=== PATIENT | male | born 1970 | race Caucasian/White ===

== ENCOUNTER → 2020-01-28 10:00 | Outpatient (BNVA) | payer OTHER, SELFPAY | PROVIDERS: PCP Internal Medicine; Referring Provider Internal Medicine; Visit Provider Surgery | DX: Z76.89 Persons encountering health services in other specified circumstances (principal) ==

== ENCOUNTER → 2020-06-02 10:28 | Outpatient (BNVA) | payer OTHER, SELFPAY | PROVIDERS: PCP Internal Medicine; Visit Provider Surgery ==

== ENCOUNTER → 2020-11-03 11:51 | Outpatient (BNVA) | payer OTHER, SELFPAY | PROVIDERS: PCP Internal Medicine; Visit Provider Surgery ==

== ENCOUNTER 2020-11-23 09:09 | Outpatient (RCR) | payer OTHER, SELFPAY | END 2020-12-23 12:31 | disposition home or self-care (01) | LOC: HO.WCC 09:09 | PROVIDERS: Visit Provider Surgery | DX: S31.819D Unspecified open wound of right buttock, subsequent encounter (principal); S31.000D Unspecified open wound of lower back and pelvis without penetration into retroperitoneum, subsequent encounter; Z87.891 Personal history of nicotine dependence; Z86.19 Personal history of other infectious and parasitic diseases; Z79.899 Other long term (current) drug therapy; Z87.19 Personal history of other diseases of the digestive system | CPT/HCPCS: 99214 ==

== ENCOUNTER 2023-04-04 12:58 | Outpatient (AMB) | payer OTHER, SELFPAY ==
--- NOTE | 2023-04-04 13:00 | MHC.PC.OV ---
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 Required: No Accompanied by: Self / Same As Patient Allergies amoxicillin [Augmentin] Allergy (Unknown, Verified 04/04/23 13:02) rash Medication List - Last Reconciled 04/04/23 by Minda Segura MD acetaminophen (Tylenol) 325 mg PO QID PRN blood pressure monitor (Blood Pressure Kit) As directed buspirone 15 mg PO BID duloxetine (Cymbalta) 60 mg PO BID risperidone 2 mg PO BID venlafaxine ER 75 mg PO DAILY zolpidem (Ambien) 10 mg PO BEDTIME Tobacco use date assessed: 04/04/23 Dental Screening Dental Screen Date: 04/04/23 Did you have a dental visit in the last 12 months?: No Did you have a dental problem in the last 6 months where you did not have access to dental care?: No Was dental information given to patient?: No HPI New patient-requesting physical HPI Details 53-year-old male with multiple medical problems patient has recurrent major depression history of polysubstance abuse GERD hepatitis-C iron deficiency anemia and has had multiple groin surgeries for hidradenitis suppurativa coming in for 1st time. Patient if for ff up hepatitis C. incarcerated 2020 2 years follow up today. RUQ pain 2 month, no n no v occ dizzy, no fevers, , no diarrhea, have cough, , no urinary sx. , no sore throat, PFSH Medical History (Updated 04/04/23 @ 14:08 by Minda Segura MD) Depression Anxiety GERD (gastroesophageal reflux disease) Hidradenitis suppurativa ETOH abuse Hepatitis C Surgical History (Updated 04/04/23 @ 14:08 by Minda Segura MD) Aftercare following left hip joint replacement surgery History of incision and drainage History of hernia repair Social History (Updated 04/04/23 @ 13:54 by Minda Segura MD) Housing: House Patient Tobacco Use Status: Current everyday Tobacco user Tobacco use type: Cigarette Years Smoked: 1/2 pack a day since 16 years old decline referral to Lung cancer screening e-Cigarette/Vaping Use: Never Used service: No Current occupational status: unemployed and disabled Cognitive needs: No Hearing needs: No Vision needs: No Questionnaire PHQ-9 Over the last 2 weeks, how often have you been bothered by any of the following problems? 1. Little interest or pleasure in doing things: several days 2. Feeling down, depressed, or hopeless: more than half the days 3. Trouble falling or staying asleep, or sleeping too much: nearly every day 4. Feeling tired or having little energy: more than half the days 5. Poor appetite or overeating: several days 6. Feeling bad about yourself - or that you are a failure or have let yourself or your family down: several days 7. Trouble concentrating on things, such as reading the newspaper or watching television: several days 8. Moving or speaking so slowly that other people could have noticed. Or the opposite - being so fidgety or restless that you have been moving around a lot more than usual: several days 9. Thoughts that you would be better off or of hurting yourself in some way: not at all Total score: 12 49078 - PHQ-9 Billing: Yes Source: Developed by Drs. Dorian Ortiz, Zoey Stephens, Shaji Yancey and colleagues, with an educational dacia from [employer]. Thrive Questionnaire Date Thrive assessed: 04/04/23 I am a: Patient What is your living situation today?: I have a steady place to live Within the past 12 months, did the food you bought not last and you didn't have the money to get more?: Never true Within the past 12 months, did you worry whether your food would run out before you got money to buy more?: Never true Do you have trouble paying for medicines?: No Do you have trouble getting transportation to medical appointments?: No Do you have trouble paying your heating and electricity bill?: No Do you have trouble taking care of your child, family member or friend?: No Do you have trouble with day-to-day activities such as bathing, preparing meals, shopping, managing finances, etc.?: No Are you currently unemployed and looking for a job?: No Are you interested in more education?: No Please select the resources that you would like help with: None Currently or been in a relationship where the following occur: no concerns reported AUDIT C Alcohol Use Questionnaire (AUDIT-C) 1. How often do you have a drink containing alcohol?: Never 3. How often do you have six or more drinks on one occasion?: Never Total Score: 0 RUBEN-7 AMB Questionnaire RUBEN-7 Date RUBEN - 7 assessed: 04/04/23 Feeling nervous, anxious, or on edge: 2 = More than half the days Not being able to stop or control worryin = Several days Worrying too much about different things: 1 = Several days Trouble relaxin = More than half the days Being so restless that it is hard to sit still: 1 = Several days Becoming easily annoyed or irritable: 1 = Several days Feeling afraid as if something awful might happen: 0 = Not at all Total RUBEN-7 score (0-4 normal; 5-9 mild; 10-14 moderate; 15-21 severe): 8 Source: Developed by Drs. Dorian Ortiz, Zoey Stephens, Shaji Yancey and colleagues, with an educational dacia from [employer]. RUBEN-7 Assessment Billing RUBEN-7 Assessment Tool: RUBEN-7 Assessment 54728 Review of Systems Const Denies poor appetite and Denies weakness Eyes Denies no additional complaints ENT Reports Normal hearing present, Denies dizziness, Denies nasal congestion, Denies tinnitus and Denies sore throat Card Denies chest pain, Denies syncope, Denies rapid heart rate and Denies dyspnea Resp Denies cough and Denies dyspnea GI Denies change in stool character, Reports constipation, Denies diarrhea, Denies nausea and Denies vomiting Denies dysuria and Denies urinary frequency Neuro Reports Normal hearing present, Denies confusion, Denies dizziness, Denies syncope and Denies weakness Psych Denies confusion Physical exam (Primary Care) Vital Signs: Last Vital Signs Pulse 98 04/04/23 13:01 BP 142/96 H 04/04/23 13:01 Pulse Ox 99 04/04/23 13:01 Oxygen Delivery Method Room Air 04/04/23 13:01 BMI result Body Mass Index 20.3 Tobacco/Smoking Status: Tobacco use Status Tobacco use date assessed 04/04/23 04/04/23 13:34 Patient Tobacco Use Status Current everyday Tobacco 04/04/23 13:54 Tobacco use type Cigarette 04/04/23 13:54 e-Cigarette/Vaping Use Never Used 04/04/23 13:54 PHQ-9: PHQ-9 Score PHQ-9: Total score 04/04/23 18:57 Thrive Assessment: Date of Thrive Assessment Date Thrive assessed 04/04/23 04/04/23 13:34 Currently or been in a relationship where the following occur: no concerns reported Const General: No confusion Orientation/consciousness: No confusion HENMT Head: Yes normocephalic Ears: external ears normal and TM's normal bilaterally Face and sinus: Yes normal facial exam Mouth: moist mucous membranes Throat: Yes tonsils normal Eyes Conjunctivae: conjunctivae normal Pupils: Equal, round and reactive pupils present and Pupil accommodation reflex normal Direct Ophthalmoscopy: normal light reflex Neck Neck: No lymphadenopathy Thyroid: Thyroid normal Chest Chest palpation & inspection: normal inspection of the chest Resp Effort & Inspection: normal respiratory effort and no audible wheezes Auscultation: clear to auscultation bilaterally, no crackles, no wheezes and lung sounds not diminished Cardio Rate: regular rate Rhythm: regular rhythm Peripheral pulses: radial pulses present and dorsalis pedis present GI Other: RUQ tenderness no guarding, no rebound, mild R flank pain Palpation (GI): no masses Auscultation: normal bowel sounds and normoactive bowel sounds Rectal Exam - Male: Yes deferred Skin General skin exam: no rashes or lesions noted Rashes: no rashes Neuro General: No confusion Cranial nerves: Yes Equal, round and reactive pupils present and Yes Normal hearing present Cognition (Neuro): normal cognition Gait exam (Neuro): Normal gait present Motor exam (neuro): 5/5 motor strength present throughout Deep tendon reflexes (DTR's): Right brachioradialis reflex intensity grade: 2+, Left brachioradialis reflex intensity grade: 2+, Right patellar reflex intensity grade: 2+ and Left patellar reflex intensity grade: 2+ Extrem General: No edema Assessment and Plan Assessment & Plan (1) Polysubstance abuse: Code(s): F19.10 - Other psychoactive substance abuse, uncomplicated (2) Recurrent major depression: Comment: Dr. Jeter Psychiatry Code(s): F33.9 - Major depressive disorder, recurrent, unspecified (3) Iron deficiency anemia: Code(s): D50.9 - Iron deficiency anemia, unspecified (4) GERD (gastroesophageal reflux disease): Code(s): K21.9 - Gastro-esophageal reflux disease without esophagitis (5) Hepatitis C: Code(s): B19.20 - Unspecified viral hepatitis C without hepatic coma (6) Blood pressure elevated without history of HTN: Code(s): R03.0 - Elevated blood-pressure reading, without diagnosis of hypertension (7) RUQ abdominal pain: Code(s): R10.11 - Right upper quadrant pain (8) Colon cancer screening: Code(s): Z12.11 - Encounter for screening for malignant neoplasm of colon (9) Renal calculus, right: Comment: 2019 Code(s): N20.0 - Calculus of kidney (10) Left hip pain: Code(s): M25.552 - Pain in left hip Orders: Orders Hepatitis C Antibody Today B19.20 - Unspecified viral hepatitis C without hepatic coma Hepatitis C Antibody Reflex Today B19.20 - Unspecified viral hepatitis C without hepatic coma Hepatitis C Viral Load Today B19.20 - Unspecified viral hepatitis C without hepatic coma Hepatitis A,B,C Profile Today B19.20 - Unspecified viral hepatitis C without hepatic coma Complete Blood Count Auto Diff Today B19.20 - Unspecified viral hepatitis C without hepatic coma Comprehensive Met. Panel Today B19.20 - Unspecified viral hepatitis C without hepatic coma Thyroid Stimulating Hormone Today B19.20 - Unspecified viral hepatitis C without hepatic coma Vitamin B12 and Folate Today B19.20 - Unspecified viral hepatitis C without hepatic coma US abdomen complete Today R10.11 - Right upper quadrant pain, R79.89 - Other specified abnormal findings of blood chemistry XR hip LT w PEL1V Today M25.552 - Pain in left hip Hepatitis C Genotype Today B19.20 - Unspecified viral hepatitis C without hepatic coma Free T4 (Free Thyroxine) Today B19.20 - Unspecified viral hepatitis C without hepatic coma Lipid Panel Today B19.20 - Unspecified viral hepatitis C without hepatic coma, E78.00 - Pure hypercholesterolemia, unspecified Ferritin Today D50.9 - Iron deficiency anemia, unspecified IRON PROFILE Today D50.9 - Iron deficiency anemia, unspecified Reticulocyte Count Today D50.9 - Iron deficiency anemia, unspecified UA w Microscopic Today D50.9 - Iron deficiency anemia, unspecified Prostate Specific Antigen Scr Today D50.9 - Iron deficiency anemia, unspecified Referrals Gastroenterology Referral B19.20 - Unspecified viral hepatitis C without hepatic coma, Z12.11 - Encounter for screening for malignant neoplasm of colon Medications: New blood pressure monitor (Blood Pressure Kit) As directed 1 ea 0RF I10 - Essential (primary) hypertension, R03.0 - Elevated blood-pressure reading, without diagnosis of hypertension meloxicam 15 mg PO DAILY 20 tabs 0RF M25.552 - Pain in left hip Coding Level of Care Code New Pt Level 4 (52263) Diagnoses Polysubstance abuse F19.10 Recurrent major depression F33.9 Iron deficiency anemia D50.9 GERD (gastroesophageal reflux disease) K21.9 Hepatitis C B19.20 Blood pressure elevated without history of HTN R03.0 RUQ abdominal pain R10.11 Colon cancer screening Z12.11 Renal calculus, right N20.0 Left hip pain M25.552 Additional Codes RUBEN-7 Assessment Billing - RUBEN-7 Assessment Tool: RUBEN-7 Assessment [id number] ([id number])
[2023-04-04 13:01] VITALS: BP 142/96; PULSE 98; O2SAT 99; BMI 20.3
== END 2023-04-04 14:14 | disposition home or self-care (01) ==
PROVIDERS: PCP Internal Medicine; Visit Provider Internal Medicine
DX: D50.9 Iron deficiency anemia, unspecified (principal); F19.10 Other psychoactive substance abuse, uncomplicated; F33.9 Major depressive disorder, recurrent, unspecified; K21.9 Gastro-esophageal reflux disease without esophagitis; B19.20 Unspecified viral hepatitis C without hepatic coma; R03.0 Elevated blood-pressure reading, without diagnosis of hypertension; R10.11 Right upper quadrant pain; Z12.11 Encounter for screening for malignant neoplasm of colon; N20.0 Calculus of kidney; M25.552 Pain in left hip
CPT/HCPCS: 99204

== ENCOUNTER 2024-02-07 12:16 | Outpatient (AMB) | payer OTHER, SELFPAY ==
[2024-02-07 12:52] VITALS: BP 84/64; PULSE 96; O2SAT 99; BMI 19.4
--- NOTE | 2024-02-07 12:52 | MHC.PC.OV ---
Vital Signs 02/07/24 12:52 02/07/24 13:07 Height 5 ft 10 in Weight 135 lb BMI 19.4 BP 84/64 L 90/80 Blood Pressure Location Lt brachial Lt brachial Position Sitting Sitting Pulse 96 Pulse Source Pulse Oximeter Pulse Oximetry (%) 99 Oxygen Delivery Method Room Air Intake Visit Reasons: Annual PE - see comments [employer] Required: No Accompanied by: Self / Same As Patient Allergies amoxicillin [Augmentin] Allergy (Unknown, Verified 02/07/24 12:53) rash Medication List - Last Reconciled 02/07/24 by Minda Segura MD acetaminophen (Tylenol) 325 mg PO QID PRN blood pressure monitor (Blood Pressure Kit) As directed buspirone 15 mg PO BID buspirone 30 mg PO BID duloxetine (Cymbalta) 60 mg PO BID ibuprofen (Motrin IB) 200 mg PO Q6H PRN risperidone 2 mg PO .QD venlafaxine ER 150 mg PO BEDTIME zolpidem (Ambien) 10 mg PO BEDTIME Tobacco use date assessed: 02/07/24 Dental Screening Dental Screen Date: 02/07/24 Did you have a dental visit in the last 12 months?: No Did you have a dental problem in the last 6 months where you did not have access to dental care?: Yes Was dental information given to patient?: Patient has dentist (Pt will try to go to [facility] to make an appt. ) HPI Annual PE - see comments HPI Details 53-year-old male with multiple medical problems coming in for physical exam. History of polysubstance abuse depression iron deficiency anemia GERD hepatitis-C nephrolithiasis right coming in for physical. Patient has been reminded about colon cancer screening. 7 cups of coffee in a day [facility] Medical History (Updated 02/07/24 @ 19:09 by Minda Segura MD) Substance abuse Depression Anxiety GERD (gastroesophageal reflux disease) Hidradenitis suppurativa ETOH abuse Hepatitis C Surgical History (Updated 02/07/24 @ 13:05 by Minda Segura MD) Aftercare following left hip joint replacement surgery History of incision and drainage History of hernia repair Social History (Updated 02/07/24 @ 13:13 by Minda Segura MD) Housing: House Alcohol intake: former Comment: QUIT 1999 Patient Tobacco Use Status: Current everyday Tobacco user Tobacco use type: Cigarette Years Smoked: 1/2 pack a day since 16 years old decline referral to Lung cancer screening e-Cigarette/Vaping Use: Never Used service: No Current occupational status: unemployed and disabled Cognitive needs: No Hearing needs: No Vision needs: No Questionnaire PHQ-9 Over the last 2 weeks, how often have you been bothered by any of the following problems? 1. Little interest or pleasure in doing things: several days 2. Feeling down, depressed, or hopeless: several days 3. Trouble falling or staying asleep, or sleeping too much: several days 4. Feeling tired or having little energy: more than half the days 5. Poor appetite or overeating: more than half the days 6. Feeling bad about yourself - or that you are a failure or have let yourself or your family down: several days 7. Trouble concentrating on things, such as reading the newspaper or watching television: several days 8. Moving or speaking so slowly that other people could have noticed. Or the opposite - being so fidgety or restless that you have been moving around a lot more than usual: more than half the days 9. Thoughts that you would be better off or of hurting yourself in some way: not at all Total score: 11 [id number] - PHQ-9 Billing: Yes Source: Developed by Drs. Dorian Ortiz, Zoey Stephens, Shaji Yancey and colleagues, with an educational dacia from [employer]. Thrive Questionnaire Date Thrive assessed: 02/07/24 I am a: Patient What is your living situation today?: I have a steady place to live Within the past 12 months, did the food you bought not last and you didn't have the money to get more?: Sometimes True Within the past 12 months, did you worry whether your food would run out before you got money to buy more?: Sometimes True Do you have trouble paying for medicines?: No Do you have trouble getting transportation to medical appointments?: No Do you have trouble paying your heating and electricity bill?: No Do you have trouble taking care of your child, family member or friend?: No Do you have trouble with day-to-day activities such as bathing, preparing meals, shopping, managing finances, etc.?: No Are you currently unemployed and looking for a job?: No Are you interested in more education?: No Please select the resources that you would like help with: None Currently or been in a relationship where the following occur: No concerns reported THRIVE Score: 2 AUDIT C Alcohol Use Questionnaire (AUDIT-C) 1. How often do you have a drink containing alcohol?: Never 3. How often do you have six or more drinks on one occasion?: Never Total Score: 0 RUBEN-7 AMB Questionnaire RUBEN-7 Date RUBEN - 7 assessed: 02/07/24 Feeling nervous, anxious, or on edge: 1 = Several days Not being able to stop or control worryin = Several days Worrying too much about different things: 1 = Several days Trouble relaxin = Several days Being so restless that it is hard to sit still: 1 = Several days Becoming easily annoyed or irritable: 1 = Several days Feeling afraid as if something awful might happen: 0 = Not at all Total RUBEN-7 score (0-4 normal; 5-9 mild; 10-14 moderate; 15-21 severe): 6 Source: Developed by Drs. Dorian Ortiz, Zoey Stephens, Shaji Yancey and colleagues, with an educational dacia from [employer]. RUBEN-7 Assessment Billing RUBEN-7 Assessment Tool: RUBEN-7 Assessment 43172 Review of Systems Const Denies poor appetite and Denies weakness Eyes Denies no additional complaints ENT Reports Normal hearing present, Denies dizziness, Denies nasal congestion, Denies tinnitus and Denies sore throat Card Denies chest pain, Denies syncope, Denies rapid heart rate and Denies dyspnea Resp Denies cough and Denies dyspnea GI Denies change in stool character, Reports constipation, Denies diarrhea, Denies nausea and Denies vomiting Denies dysuria and Denies urinary frequency Neuro Reports Normal hearing present, Denies confusion, Denies dizziness, Denies syncope and Denies weakness Psych Denies confusion Physical exam (Primary Care) Vital Signs: Last Vital Signs Pulse 96 02/07/24 12:52 BP 90/80 02/07/24 13:07 Pulse Ox 99 02/07/24 12:52 Oxygen Delivery Method Room Air 02/07/24 12:52 BMI result Body Mass Index 19.4 Tobacco/Smoking Status: Tobacco use Status Tobacco use date assessed 02/07/24 02/07/24 12:54 Patient Tobacco Use Status Current everyday Tobacco 02/07/24 13:13 Tobacco use type Cigarette 02/07/24 13:13 e-Cigarette/Vaping Use Never Used 02/07/24 13:13 PHQ-9: PHQ-9 Score PHQ-9: Total score 11 02/07/24 13:04 Thrive Assessment: Date of Thrive Assessment Date Thrive assessed 02/07/24 02/07/24 12:54 Currently or been in a relationship where the following occur: No concerns reported Const General: No confusion Orientation/consciousness: No confusion HENMT Other: bilateral impacted cerumen Head: Yes normocephalic Ears: external ears normal Face and sinus: Yes normal facial exam Mouth: moist mucous membranes Throat: Yes tonsils normal Eyes Conjunctivae: conjunctivae normal Pupils: Equal, round and reactive pupils present and Pupil accommodation reflex normal Direct Ophthalmoscopy: normal light reflex Neck Other: L carotid bruit noted Neck: No lymphadenopathy Thyroid: Thyroid normal Chest Chest palpation & inspection: normal inspection of the chest Resp Effort & Inspection: normal respiratory effort and no audible wheezes Auscultation: clear to auscultation bilaterally, no crackles, no wheezes and lung sounds not diminished Cardio Rate: regular rate Rhythm: regular rhythm Peripheral pulses: radial pulses present and dorsalis pedis present GI Other: guaiac negative , prostate N Palpation (GI): no masses Auscultation: normal bowel sounds and normoactive bowel sounds Back/Spine/Pelvis Back/spine/pelvis image: 1. open cross flap noted about the rectal area- scarred incisional scar 2. Neuro General: No confusion Cranial nerves: Yes Equal, round and reactive pupils present and Yes Normal hearing present Cognition (Neuro): normal cognition Gait exam (Neuro): Normal gait present Motor exam (neuro): 5/5 motor strength present throughout Deep tendon reflexes (DTR's): Right brachioradialis reflex intensity grade: 2+, Left brachioradialis reflex intensity grade: 2+, Right patellar reflex intensity grade: 2+ and Left patellar reflex intensity grade: 2+ Extrem General: No edema Office Procedures Flu Questionnaire Does the patient have a severe egg allergy?: No Immunizations Fluarix Triv [id number] (PF) 45 mcg (15 mcg x 3)/0.5 mL IM syringe Performing Provider: Minda Segura MD [facility] [place] [facility] Documented (not given) by: LUKE Ramirez on 02/07/24 12:54 Reason Not Given: Patient Refused Coding Level of Care Code Est Pt Prev Care 40-64y(63942) Diagnoses Physical exam, annual Z00.00 Iron deficiency anemia, unspecified iron deficiency anemia type D50.9 Iron deficiency anemia type: unspecified iron deficiency Renal calculus, right N20.0 Gastroesophageal reflux disease without esophagitis K21.9 Esophagitis presence: without esophagitis Hepatitis C virus infection without hepatic coma, unspecified chronicity B19.20 Hepatic coma status: without hepatic coma Viral hepatitis chronicity: unspecified ETOH abuse F10.10 Polysubstance abuse F19.10 Colon cancer screening Z12.11 Moderate episode of recurrent major depressive disorder F33.1 Active/Remission status: currently active Major depression episode severity: moderate Hidradenitis suppurativa L73.2 Left carotid bruit R09.89 Leg length discrepancy M21.70 Impacted cerumen of both ears H61.23 Additional Codes RUBEN-7 Assessment Billing - RUBEN-7 Assessment Tool: RUBEN-7 Assessment 05920 ([id number]) Assessment & Plan Assessment & Plan (1) Physical exam, annual: Code(s): Z00.00 - Encounter for general adult medical examination without abnormal findings Category: Medical Plan: Patient is advised to eat healthy, keep well hydrated, keep active and have adequate sleep. (2) Iron deficiency anemia: Code(s): D50.9 - Iron deficiency anemia, unspecified Category: Medical Qualifiers: Iron deficiency anemia type: unspecified iron deficiency Qualified Code(s): D50.9 - Iron deficiency anemia, unspecified Plan: Will need blood work (3) Renal calculus, right: Comment: 2019 Code(s): N20.0 - Calculus of kidney Category: Medical Plan: Keep well hydrated (4) GERD (gastroesophageal reflux disease): Code(s): K21.9 - Gastro-esophageal reflux disease without esophagitis Category: Medical Qualifiers: Esophagitis presence: without esophagitis Qualified Code(s): K21.9 - Gastro-esophageal reflux disease without esophagitis Plan: Avoid the foods that causes that usually spicy foods, tomato products, juices, coffee, soda and foods that your sensitive to. After eating do not lie down, allow 3-4 hours before in lie down. And keep the head of bed above 30 degrees to avoid the acid from going up. (5) Hepatitis C: Code(s): B19.20 - Unspecified viral hepatitis C without hepatic coma Category: Medical Qualifiers: Hepatic coma status: without hepatic coma Viral hepatitis chronicity: unspecified Qualified Code(s): B19.20 - Unspecified viral hepatitis C without hepatic coma Plan: Discussion about treatment and referral to Gastroenterology (6) ETOH abuse: Code(s): F10.10 - Alcohol abuse, uncomplicated Category: Social Hx Plan: Patient is strongly advised to abstain. (7) Polysubstance abuse: Code(s): F19.10 - Other psychoactive substance abuse, uncomplicated Category: Medical Plan: Discussion with the patient regarding staying away from this. (8) Colon cancer screening: Code(s): Z12.11 - Encounter for screening for malignant neoplasm of colon Category: Medical Plan: Patient is reminded about colon cancer screening. (9) Recurrent major depression: Comment: Dr. Jeter Psychiatry Code(s): F33.9 - Major depressive disorder, recurrent, unspecified Category: Medical Qualifiers: Active/Remission status: currently active Major depression episode severity: moderate Qualified Code(s): F33.1 - Major depressive disorder, recurrent, moderate Plan: Continue with counseling and therapy (10) Hidradenitis suppurativa: Comment: Left groin June 2018 Code(s): L73.2 - Hidradenitis suppurativa Category: Medical Plan: This is all healed in the lumbar rectal area. (11) Left carotid bruit: Code(s): R09.89 - Other specified symptoms and signs involving the circulatory and respiratory systems Category: Medical Plan: Will order for an ultrasound of the carotids. (12) Leg length discrepancy: Comment: L side shorter Code(s): M21.70 - Unequal limb length (acquired), unspecified site Category: Medical Plan: orthopedic shoe prescibed L shoe (13) Impacted cerumen of both ears: Code(s): H61.23 - Impacted cerumen, bilateral Category: Medical Plan: willneed to schedule ear irrigation Orders: Orders Influenza [id number] Immunization Today Z23 - Encounter for immunization US carotid duplex BI Today R09.89 - Other specified symptoms and signs involving the circulatory and respiratory systems Referrals Gastroenterology Referral B19.20 - Unspecified viral hepatitis C without hepatic coma, F10.10 - Alcohol abuse, uncomplicated, K21.9 - Gastro-esophageal reflux disease without esophagitis, Z12.11 - Encounter for screening for malignant neoplasm of colon Medications: New buspirone 30 mg PO BID 60 tabs 0RF F33.9 - Major depressive disorder, recurrent, unspecified famotidine 20 mg PO BEDTIME 30 tabs 2RF K21.9 - Gastro-esophageal reflux disease without esophagitis [ORTHOPEDIC SHOE] As directed 1 ea 0RF M21.70 - Unequal limb length (acquired), unspecified site oxaprozin (Daypro) 600 mg PO DAILY 60 tabs 0RF M25.552 - Pain in left hip oxaprozin (Daypro) 600 mg PO DAILY 60 tabs 0RF M25.552 - Pain in left hip
[2024-02-07 13:07] VITALS: BP 90/80
== END 2024-02-07 13:35 | disposition home or self-care (01) ==
PROVIDERS: PCP Internal Medicine; Visit Provider Internal Medicine
DX: Z00.00 Encounter for general adult medical examination without abnormal findings (principal); F19.10 Other psychoactive substance abuse, uncomplicated; D50.9 Iron deficiency anemia, unspecified; N20.0 Calculus of kidney; K21.9 Gastro-esophageal reflux disease without esophagitis; B19.20 Unspecified viral hepatitis C without hepatic coma; F10.10 Alcohol abuse, uncomplicated; Z12.11 Encounter for screening for malignant neoplasm of colon; F33.1 Major depressive disorder, recurrent, moderate; L73.2 Hidradenitis suppurativa; R09.89 Other specified symptoms and signs involving the circulatory and respiratory systems

== ENCOUNTER → 2024-02-07 12:16 | Outpatient (BNVA) | payer OTHER, SELFPAY | PROVIDERS: PCP Internal Medicine; Visit Provider Internal Medicine | DX: Z00.01 Encounter for general adult medical examination with abnormal findings (principal); D50.9 Iron deficiency anemia, unspecified; N20.0 Calculus of kidney; K21.9 Gastro-esophageal reflux disease without esophagitis; B19.20 Unspecified viral hepatitis C without hepatic coma; F10.10 Alcohol abuse, uncomplicated; F19.10 Other psychoactive substance abuse, uncomplicated; F33.1 Major depressive disorder, recurrent, moderate; L73.2 Hidradenitis suppurativa; R09.89 Other specified symptoms and signs involving the circulatory and respiratory systems; M21.70 Unequal limb length (acquired), unspecified site; H61.23 Impacted cerumen, bilateral; Z28.21 Immunization not carried out because of patient refusal | CPT/HCPCS: 90471; 96127; 99396 ==

== ENCOUNTER 2024-04-29 10:06 | Outpatient (REF) | payer OTHER, SELFPAY ==
--- NOTE | ~2024-04-29 | US_ITS ---
CLINICAL HISTORY: R09.89 - bruit left carotid US Bilateral Carotid Duplex Comparison: None Findings: Moderate plaque within the common carotid arteries. Moderate plaque within the carotid bulbs. Normal color doppler and waveforms morphology. Peak systolic velocities: Right CCA: 144 cm/s. Right ICA: 111 cm/s. ICA/CCA ratio: 0.9. Right ECA: Unremarkable. Right vertebral artery flow antegrade. Left CCA: 132 cm/s. Left ICA: 118 cm/s. ICA/CCA ratio: 0.8. Left ECA: Unremarkable. Left vertebral artery flow antegrade. IMPRESSION: Normal carotid velocities, no significant stenosis (0-49% stenosis). This document has been electronically signed by: Anders Lee MD on 04/30/2024 18:18:32
--- NOTE | ~2024-04-29 | XR_ITS ---
EXAMINATION: XR HIP 1 VIEW LEFT WITH PELVIS HISTORY: M25.552 - Pain in left hip COMPARISON: Correlation is made with a CT of the abdomen and pelvis dated 06/04/2018. FINDINGS: Two views of the left hip and a single AP view of the pelvis are submitted. Osseous mineralization is normal. The left femoral head is absent and there is superior migration of the remainder of the femur. This is possibly related to a femoral neck fracture with lysis of the femoral head. The soft tissues are unremarkable. XR/XR hip LT 1V w/wo pel IMPRESSION: Absence of the left femoral head with superior migration of the remainder of the femur. This may be related to a prior femoral neck fracture with lysis of the femoral head. Clinical correlation is recommended. Electronically signed by: Dorian Narvaez MD 05/04/2024 09:20 AM [facility]
== END 2024-04-29 10:07 | disposition home or self-care (01) ==
LOC: HO.US 10:06
PROVIDERS: PCP Internal Medicine; Visit Provider Internal Medicine
DX: R09.89 Other specified symptoms and signs involving the circulatory and respiratory systems (principal); M25.552 Pain in left hip
CPT/HCPCS: 73502; 93880

== ENCOUNTER → 2024-04-29 10:09 | Outpatient (BNV) | payer OTHER, SELFPAY | PROVIDERS: PCP Internal Medicine; Visit Provider Specialist | DX: R09.89 Other specified symptoms and signs involving the circulatory and respiratory systems (principal) | CPT/HCPCS: 93880 ==

== ENCOUNTER 2024-06-02 13:15 | Outpatient (AMB) | payer OTHER, SELFPAY ==
--- NOTE | 2024-06-02 13:18 | MHC.PC.OV ---
Vital Signs 06/02/24 13:19 Height 5 ft 10 in Weight 138 lb BMI 19.8 BP 112/72 Blood Pressure Location Lt brachial Position Sitting Pulse 92 Pulse Source Pulse Oximeter Pulse Oximetry (%) 96 Oxygen Delivery Method Room Air Intake Visit Reasons: gerd Allergies amoxicillin [Augmentin] Allergy (Unknown, Verified 06/02/24 13:29) rash Tobacco use date assessed: 06/02/24 Dental Screening Dental Screen Date: 06/02/24 Did you have a dental visit in the last 12 months?: Yes Did you have a dental problem in the last 6 months where you did not have access to dental care?: No Was dental information given to patient?: Patient has dentist HPI gerd HPI Details The patient is a 54-year-old male presenting with a history of multiple chronic conditions for follow-up management. He has a known diagnosis of hepatitis C and a history of significant alcohol use disorder. Efforts to manage his condition have included counseling and therapy, with a strong recommendation to abstain from alcohol. He also suffers from gastroesophageal reflux disease (GERD), which was previously addressed and managed. Additionally, the patient has a history of polysubstance use disorder. Further, he has been managing his generalized anxiety disorder and recurrent major depressive disorder with counseling. Regarding his orthopedic history, the patient has a notable past medical history of femoral neck fracture, as evidenced by hip x-ray findings showing the absence of the left femoral head with superior migration of the remainder of the femur. A recent normal ultrasound of the carotids has been documented. The patient was last seen in January for a physical examination, during which a colonoscopy was advised but not yet completed. His blood work was last performed in May 2018. During today's visit, the patient is prompted on the gastroenterology referral for his GERD to seek appropriate treatment. [facility] Medical History (Updated 06/02/24 @ 13:57 by Minda Segura MD) Substance abuse Depression Anxiety GERD (gastroesophageal reflux disease) Hidradenitis suppurativa ETOH abuse Hepatitis C Surgical History (Updated 02/07/24 @ 13:05 by Minda Segura MD) Aftercare following left hip joint replacement surgery History of incision and drainage History of hernia repair Social History (Updated 02/07/24 @ 13:13 by Minda Segura MD) Housing: House Alcohol intake: former Comment: QUIT 1999 Patient Tobacco Use Status: Current everyday Tobacco user Tobacco use type: Cigarette Cigarette Packs Per Day: 1 Years Smoked: 1/2 pack a day since 16 years old decline referral to Lung cancer screening e-Cigarette/Vaping Use: Never Used Second Hand Smoke Exposure: Yes service: No Current occupational status: unemployed and disabled Current occupational exposures/hazards: No Cognitive needs: No Hearing needs: No Vision needs: No Questionnaire PHQ-9 Over the last 2 weeks, how often have you been bothered by any of the following problems? 1. Little interest or pleasure in doing things: several days 2. Feeling down, depressed, or hopeless: several days 3. Trouble falling or staying asleep, or sleeping too much: several days 4. Feeling tired or having little energy: more than half the days 5. Poor appetite or overeating: more than half the days 6. Feeling bad about yourself - or that you are a failure or have let yourself or your family down: several days 7. Trouble concentrating on things, such as reading the newspaper or watching television: several days 8. Moving or speaking so slowly that other people could have noticed. Or the opposite - being so fidgety or restless that you have been moving around a lot more than usual: more than half the days 9. Thoughts that you would be better off or of hurting yourself in some way: not at all Total score: 11 27351 - PHQ-9 Billing: Yes Source: Developed by Drs. Dorian Ortiz, Zoey Stephens, Shaji Yancey and colleagues, with an educational dacia from [employer]. Thrive Questionnaire Date Thrive assessed: 06/02/24 AUDIT C Alcohol Use Questionnaire (AUDIT-C) 1. How often do you have a drink containing alcohol?: Never 3. How often do you have six or more drinks on one occasion?: Never Total Score: 0 RUBEN-7 AMB Questionnaire RUBEN-7 Date RUBEN - 7 assessed: 06/02/24 Feeling nervous, anxious, or on edge: 1 = Several days Not being able to stop or control worryin = Several days Worrying too much about different things: 1 = Several days Trouble relaxin = Several days Being so restless that it is hard to sit still: 1 = Several days Becoming easily annoyed or irritable: 1 = Several days Feeling afraid as if something awful might happen: 0 = Not at all Total RUBEN-7 score (0-4 normal; 5-9 mild; 10-14 moderate; 15-21 severe): 6 Source: Developed by Drs. Dorian Ortiz, Zoey Stephens, Shaji Yancey and colleagues, with an educational dacia from [employer]. RUBEN-7 Assessment Billing RUBEN-7 Assessment Tool: RUBEN-7 Assessment 75814 Physical exam (Primary Care) Vital Signs: Last Vital Signs Pulse 92 06/02/24 13:19 BP 112/72 06/02/24 13:19 Pulse Ox 96 06/02/24 13:19 Oxygen Delivery Method Room Air 06/02/24 13:19 BMI result Body Mass Index 19.8 Tobacco/Smoking Status: Tobacco use Status Tobacco use date assessed 06/02/24 06/02/24 13:36 Patient Tobacco Use Status Current everyday Tobacco 06/02/24 13:21 Tobacco use type Cigarette 06/02/24 13:21 e-Cigarette/Vaping Use Never Used 06/02/24 13:21 PHQ-9: PHQ-9 Score PHQ-9: Total score 11 06/02/24 13:36 Thrive Assessment: Date of Thrive Assessment Date Thrive assessed 06/02/24 06/02/24 13:21 Const General: alert; No acute distress Eyes Conjunctivae: conjunctivae normal Resp Auscultation: clear to auscultation bilaterally Cardio Rate: regular rate Rhythm: regular rhythm GI Inspection: Yes normal to inspection Extrem General: Yes normal to inspection and No edema Coding Level of Care Code Est Pt Level 4 (31046) Diagnoses Gastroesophageal reflux disease without esophagitis K21.9 Esophagitis presence: without esophagitis Moderate episode of recurrent major depressive disorder F33.1 Active/Remission status: currently active Major depression episode severity: moderate ETOH abuse F10.10 Hepatitis C virus infection without hepatic coma, unspecified chronicity B19.20 Viral hepatitis chronicity: unspecified Hepatic coma status: without hepatic coma Tobacco abuse Z72.0 Additional Codes RUBEN-7 Assessment Billing - RUBEN-7 Assessment Tool: RUBEN-7 Assessment 35965 ([id number]) PHQ-9 - 39707 - PHQ-9 Billing: Yes ([id number]) Assessment & Plan Assessment & Plan (1) GERD (gastroesophageal reflux disease): Code(s): K21.9 - Gastro-esophageal reflux disease without esophagitis Category: Medical Qualifiers: Esophagitis presence: without esophagitis Qualified Code(s): K21.9 - Gastro-esophageal reflux disease without esophagitis Plan: Avoid the foods that causes that usually spicy foods, tomato products, juices, coffee, soda and foods that your sensitive to. After eating do not lie down, allow 3-4 hours before in lie down. And keep the head of bed above 30 degrees to avoid the acid from going up. (2) Recurrent major depression: Comment: Dr. Jeter Psychiatry Code(s): F33.9 - Major depressive disorder, recurrent, unspecified Category: Medical Qualifiers: Active/Remission status: currently active Major depression episode severity: moderate Qualified Code(s): F33.1 - Major depressive disorder, recurrent, moderate Plan: Continue with counseling and therapy (3) ETOH abuse: Code(s): F10.10 - Alcohol abuse, uncomplicated Category: Social Hx Plan: Patient is strongly advised to abstain from alcohol (4) Hepatitis C: Code(s): B19.20 - Unspecified viral hepatitis C without hepatic coma Category: Medical Qualifiers: Viral hepatitis chronicity: unspecified Hepatic coma status: without hepatic coma Qualified Code(s): B19.20 - Unspecified viral hepatitis C without hepatic coma Plan: Patient is reminded about gastroenterology referral for treatment and colon cancer screening. Patient was given the phone number (5) Tobacco abuse: Code(s): Z72.0 - Tobacco use Category: Medical Plan: decline lung cancer screening. Patient is strongly advised to stop smoking Plan - Reiterate the importance of alcohol abstinence and continue with regular counseling and therapy sessions. - Remind the patient of the previously recommended colonoscopy procedure and encourage scheduling. - Advise the continuation of gastroenterology referral to address GERD management adequately. - Recommend routine monitoring of mental health status and adjusting treatment for generalized anxiety disorder and recurrent major depressive disorder as needed. - Consider further orthopedic evaluation for the femoral neck fracture if symptomatic changes occur.
[2024-06-02 13:19] VITALS: BP 112/72; PULSE 92; O2SAT 96; BMI 19.8
== END 2024-06-02 14:04 | disposition home or self-care (01) ==
PROVIDERS: PCP Internal Medicine; Visit Provider Internal Medicine
DX: K21.9 Gastro-esophageal reflux disease without esophagitis (principal); F33.1 Major depressive disorder, recurrent, moderate; F10.10 Alcohol abuse, uncomplicated; B19.20 Unspecified viral hepatitis C without hepatic coma; Z72.0 Tobacco use

== ENCOUNTER → 2024-06-02 13:15 | Outpatient (BNVA) | payer OTHER, SELFPAY | PROVIDERS: PCP Internal Medicine; Visit Provider Internal Medicine | DX: K21.9 Gastro-esophageal reflux disease without esophagitis (principal); F33.1 Major depressive disorder, recurrent, moderate; F10.10 Alcohol abuse, uncomplicated; B19.20 Unspecified viral hepatitis C without hepatic coma; Z72.0 Tobacco use | CPT/HCPCS: 96127; 99212 ==

== ENCOUNTER 2024-08-27 08:44 | Outpatient (REF) | payer MEDICARE, SELFPAY ==
[2024-08-27 09:01] LABS: MANUAL DIFF FLAG NO
--- OUTSIDE RECORDS SUMMARY | 2024-08-27 09:04 | XMS_ITS | Encounter Summary ---
Author Organization [employer] Address [address] [facility] [address] [place] [address] Care Team Providers Care Slag Skimmer Name Role Phone Unavailable Primary Care Provider Unavailabl e Reason for Visit * Reason Onset Date Comments New Patient 01/16/2023 Encounter Details Date Type Department Care Team (Late st Contact Info) Description 01/16/2023 Telephone [facility] [address], [place] [phone] Saroj Charlton MD [address], [place] [phone] New Patient Social History Tobacco Use Types Packs/Day Years Used Date Smoking Tobacco: Never Assessed Sex and Gender Information Value Date Recorded Sex Assigned at Male 11/08/2022 10:40 AM EDT Legal Sex Male 10:36 AM EDT Gender Identity Male 11/08/2022 10:40 AM EDT Sexual Orientation Don't know 11/08/2022 10 :40 AM EDT documented as of this encounter Miscellaneous Notes * Telephone Encounter - Tico Amanda - 01/16/2023 3:22 PM EDT New Patients Par Tico Manuel called to schedule New patient appt, pt did not answer/ Could not leave voicemail due to the number you have dial is not accepting calls at this time documented in this encounter Plan of Treatment Not on file documented as of this encounter Visit Diagnoses Not on filedocumented in this encounter
--- OUTSIDE RECORDS SUMMARY | 2024-08-27 09:04 | XMS_ITS | Clinical Summary ---
Author Organization [employer] Address [address] [facility] [address] [place] [address] Care Team Providers Care Boxing Instructor Name Role Phone Unavailable Primary Care Provider Unavailabl e Social History Tobacco Use Types Packs/Day Years Used Date Smoking Tobacco: Never Assessed Sex and Gender Information Value Date Recorded Sex Assigned at Male 11/08/2022 10:40 AM EDT Legal Sex Male 10:36 AM EDT Gender Identity Male 11/08/2022 10:40 AM EDT Sexual Orientation Don't know 11/08/2022 10 :40 AM EDT Plan of Treatment Health Maintenance Due Date Last Done Comments CT Colonography 1972 Colonoscopy 1972 Colorectal Cancer Screening 1972 Depression Screening 1972 FIT DNA/Cologuard 1972 FIT 1972 FOBT 1972 HIV Screening 1972 Lipid Panel 1972 SDOH Screening 1972 Sigmoidoscopy 1972 Alcohol/Substance Use Screening 1984 Tobacco Screening 1984 Family Planning (PISQ) 02/23/1987 Hepatitis C Screening 02/23/1990 DTaP/Tdap/Td Vaccines (1 - Tdap) 02/23/1991 Hepatitis B Vaccines (1 of 3 - 19+ 3-dose series) 02/23/1991 Pneumococcal Vaccine: 50+ Ye ars (1 of 1 - PCV) 02/23/2022 Zoster Vaccines (1 of 2) 02/23/2022 COVID-19 Vaccine ( - 2023-2 5 season) 2023 Influenza Vaccine (#1) 2023 RSV Patients and Pa tients Aged 60 years or older (1 - 1-dose 75+ series) 02/23/2047 HIB Vaccines Aged Out No longer eligi ble based on patient's age to complete this topic HPV Vaccines Aged Out No longer eligi ble based on patient's age to complete this topic Hepatitis A Vaccines Aged Out No long er eligible based on patient's age to complete this topic IPV Vaccines Aged Out No longer eligi ble based on patient's age to complete this topic Meningococcal Vaccine Aged Out No sarika more eligible based on patient's age to complete this topic Pneumococcal Vaccine: Pediat rics (0 to 5 Years) and At-Risk Patients (6 to 49) Years) Aged Out No longer eligible b ased on patient's age to complete this topic RSV under 20 months Aged Out No longe r eligible based on patient's age to complete this topic Rotavirus Vaccines Aged Out No longer eligible based on patient's age to complete this topic Insurance DUAL COMPLETE
[2024-08-27 09:27] LABS: Basophils Absolute Auto 0.1 X10*3/uL (0.0-0.2); Basophils Percent Auto 0.7 % (0-2); Eosinophils Absolute Auto 0.2 X10*3/uL (0.0-0.4); Eosinophils Percent Auto 1.5 % (0-4); Hematocrit 36.1 % (42.0-52.0); Hemoglobin 12.3 g/dl (14.0-18.0); Imm Gran Abs Auto 0.05 X10*3/uL (0.00-0.03); Imm Gran Pct Auto 0.5 % (0.0-0.4); Immature Retic Fraction 15.4 % (2.3-13.4); Lymphocytes Absolute Auto 2.2 X10*3/uL (1.2-4.9); Lymphocytes Percent Auto 22.8 % (20-40); Mean Corpuscular HGB Conc 34.1 g/dl (31.0-36.0); Mean Corpuscular Hemoglobin 32.2 pg (27.0-33.0); Mean Corpuscular Volume 94.5 fL (80.0-98.0); Mean Platelet Volume 8.6 fL (9.4-12.4); Monocytes Absolute Auto 0.5 X10*3/uL (0.1-1.2); Monocytes Percent Auto 5.6 % (2-11); Neutrophils Absolute Auto 6.7 x10*3/uL (2.0-8.3); Neutrophils Percent Auto 68.9 % (45-73); Platelet Count 284 X10*3/uL (160-400); Red Blood Count 3.82 X10*6/uL (4.60-5.80); Red Cell Distribution Width 14.1 % (11.0-16.0); Retic HGB Equivalent 35.9 pg (30.0-35.0); Reticulocyte Percent 1.6 % (0.5-1.8); Reticulocytes Absolute 0.063 X10*6/uL (0.026-0.095); White Blood Count 9.7 X10*3/uL (4.8-10.8)
[2024-08-27 09:39] LABS: Appearance Urine Clear; Color Urine Yellow; Glucose Urine UA Negative (Negative); Leukocyte Esterase Urine Negative (Negative); Nitrite Urine Negative (Negative); PH 6.5 (5.0-9.0); Specific Gravity - Urine <= 1.005 (1.005-1.025); Urine Blood Negative (Negative); Urine Ketones Negative (Negative); Urine Protein Negative (Neg-Trace)
[2024-08-27 09:43] LABS: Bacteria Urine None Seen (None Seen); Hyaline Casts Urine 0-2 /LPF (0-2); RBC Urine 0-2 /HPF (0-2); Squamous Epithelial Cell Urine 0-2 /HPF (0-2); WBC Urine 0-5 /HPF (0-5)
[2024-08-27 10:04] LABS: Alanine Aminotransferase < 6 U/L (0-40); Albumin Level 3.9 g/dL (3.5-5.0); Alkaline Phosphatase 65 U/L (39-117); Anion Gap 12 (12-20); Aspartate Amino Transferase 20 U/L (5-37); Bilirubin Total 0.2 mg/dL (0.0-1.0); Blood Urea Nitrogen 10 mg/dL (9-16); Carbon Dioxide 27 mmol/L (22-29); Chloride 103 mmol/L (96-108); Cholesterol 149 mg/dL (<200); Estimated Glomerular Filt Rate > 60; Glucose Random 92 mg/dL (60-115); HDL Cholesterol 58 mg/dL (>40); Iron 77 mcg/dL (45-160); LDL Cholesterol Calculated 69 mg/dL (<100); Percent Iron Saturation 32 % (15-50); Potassium 4.5 mmol/L (3.3-5.1); Sodium 137 mmol/L (135-145); Total Iron Binding Capacity 241 mcg/dL (228-428); Total Protein 7.2 g/dL (6.5-8.0); Triglycerides 112 mg/dL (<150); Unsaturated Iron Binding 164 ug/dL
[2024-08-27 10:24] LABS: Ferritin 64 ng/mL (20-250); Free T4 (Free Thyroxine) 0.86 ng/dL (0.71-1.85); Thyroid Stimulating Hormone 1.15 uIU/mL (0.32-4.0)
[2024-08-27 10:25] LABS: HBc Num1 0.37 S/CO (0.00-0.79); HBsAGNum1 0.38 S/CO (0.00-0.99); Hepatitis A Antibody IgM 0.17 Index (0-0.79); Hepatitis B Core Antibody Nonreactive (Nonreactive); Hepatitis B Surface Antigen Negative (Negative); ~HepC Num1 5.31 S/CO (0.00-0.79); ~Hepatitis A Antibody IgM Nonreactive (Nonreactive); ~Hepatitis B Surface Antibody REACTIVE (Nonreactive); ~Hepatitis C Antibody Reactive (Nonreactive)
[2024-08-27 10:27] LABS: Folate 2.6 ng/mL (> or = 4.0); Prostate Specific Antigen Scr 0.41 ng/mL (<0.05-4.0); Vitamin B12 286 pg/mL (200-900)
[2024-08-28 14:48] LABS: HCV RNA PCR Qn <1.18 NOT DETECTED Log IU/mL (NOT DETECTED); HCV RNA PCR Qn <15 NOT DETECTED IU/mL (NOT DETECTED)
== END 2024-08-27 08:45 | disposition home or self-care (01) ==
LOC: HO.LAB 08:44
PROVIDERS: PCP Internal Medicine; Visit Provider Internal Medicine
DX: B19.20 Unspecified viral hepatitis C without hepatic coma (principal); E78.00 Pure hypercholesterolemia, unspecified; D50.9 Iron deficiency anemia, unspecified; Z12.5 Encounter for screening for malignant neoplasm of prostate
CPT/HCPCS: 36415; 80053; 80061; 81001; 82607; 82728; 82746; 83540; 84153; 84439; 84443; 85025; 85045; 86704; 86706; 86709; 86803; 87340; 87522; 87902

== ENCOUNTER 2024-09-07 10:43 | Outpatient (AMB) | payer OTHER, SELFPAY ==
--- NOTE | 2024-09-07 10:53 | A.OFFPC_ITS ---
Vital Signs 09/07/24 10:54 Height 5 ft 10 in Weight 146 lb BMI 20.9 BP 108/72 Blood Pressure Location Lt brachial Position Sitting Pulse 94 Pulse Source Pulse Oximeter Pulse Oximetry (%) 98 Oxygen Delivery Method Room Air Intake Visit Reasons: 3mth f/u - see comments Allergies amoxicillin [Augmentin] Allergy (Unknown, Verified 09/07/24 10:54) rash Medication List - Last Reconciled 09/07/24 by Minda Segura MD acetaminophen (Tylenol) 325 mg PO QID PRN alprazolam (Xanax) 0.5 mg PO DAILY PRN blood pressure monitor (Blood Pressure Kit) As directed buspirone 15 mg PO BID celecoxib (Celebrex) 200 mg PO DAILY duloxetine (Cymbalta) 60 mg PO BID famotidine 20 mg PO BEDTIME folic acid 1 mg PO DAILY gabapentin 600 mg PO TID [ORTHOPEDIC SHOE As directed] risperidone 2 mg PO .QD zolpidem (Ambien) 10 mg PO BEDTIME Tobacco use date assessed: 09/07/24 Dental Screening Dental Screen Date: 09/07/24 Did you have a dental visit in the last 12 months?: Yes Did you have a dental problem in the last 6 months where you did not have access to dental care?: No Was dental information given to patient?: Patient has dentist [facility] Medical History (Updated 09/07/24 @ 11:31 by Minda Segura MD) Substance abuse Depression Anxiety GERD (gastroesophageal reflux disease) Hidradenitis suppurativa ETOH abuse Hepatitis C Surgical History (Updated 02/07/24 @ 13:05 by Minda Segura MD) Aftercare following left hip joint replacement surgery History of incision and drainage History of hernia repair Family History (Updated 09/07/24 @ 11:01 by Chani Cat CMA) Mother No problems noted. Father No problems noted. Brother No problems noted. Son No problems noted. Social History (Updated 02/07/24 @ 13:13 by Minda Segura MD) Housing: House Alcohol intake: former Comment: QUIT 1999 Patient Tobacco Use Status: Current everyday Tobacco user Tobacco use type: Cigarette Cigarette Packs Per Day: 1 Cigarettes Per Day: 15 Years Smoked: 3/4 pack a day since 16 years old decline referral to Lung cancer screening e-Cigarette/Vaping Use: Never Used Second Hand Smoke Exposure: Yes service: No Current occupational status: unemployed and disabled Current occupational exposures/hazards: No Cognitive needs: No Hearing needs: No Vision needs: No Questionnaire PHQ-9 Over the last 2 weeks, how often have you been bothered by any of the following problems? 1. Little interest or pleasure in doing things: several days 2. Feeling down, depressed, or hopeless: several days 3. Trouble falling or staying asleep, or sleeping too much: several days 4. Feeling tired or having little energy: several days 5. Poor appetite or overeating: not at all 6. Feeling bad about yourself - or that you are a failure or have let yourself or your family down: several days 7. Trouble concentrating on things, such as reading the newspaper or watching television: several days 8. Moving or speaking so slowly that other people could have noticed. Or the opposite - being so fidgety or restless that you have been moving around a lot more than usual: several days 9. Thoughts that you would be better off or of hurting yourself in some way: not at all Total score: 7 Depression Screening Interpretation: Positive Depression Screening Done: Yes Source: Developed by Drs. Dorian Ortiz, Zoey Stephens, Shaji Yancey and colleagues, with an educational dacia from [employer]. Thrive Questionnaire Date Thrive assessed: 09/07/24 I am a: Patient What is your living situation today?: I have a steady place to live Within the past 12 months, did the food you bought not last and you didn't have the money to get more?: Sometimes True Within the past 12 months, did you worry whether your food would run out before you got money to buy more?: Sometimes True Do you have trouble paying for medicines?: No Do you have trouble getting transportation to medical appointments?: No Do you have trouble paying your heating and electricity bill?: No Do you have trouble taking care of your child, family member or friend?: No Do you have trouble with day-to-day activities such as bathing, preparing meals, shopping, managing finances, etc.?: No Are you currently unemployed and looking for a job?: Yes Are you interested in more education?: No Please select the resources that you would like help with: None Currently or been in a relationship where the following occur: I choose not to answer THRIVE Score: 2 AUDIT C Alcohol Use Questionnaire (AUDIT-C) 1. How often do you have a drink containing alcohol?: Never Total Score: 0 RUBEN-7 AMB Questionnaire RUBEN-7 Date RUBEN - 7 assessed: 09/07/24 Feeling nervous, anxious, or on edge: 1 = Several days Not being able to stop or control worryin = Several days Worrying too much about different things: 1 = Several days Trouble relaxin = Several days Being so restless that it is hard to sit still: 1 = Several days Becoming easily annoyed or irritable: 1 = Several days Feeling afraid as if something awful might happen: 2 = More than half the days Total RUBEN-7 score (0-4 normal; 5-9 mild; 10-14 moderate; 15-21 severe): 8 Source: Developed by Drs. Dorian Ortiz, Zoey Stephens, Shaji Yancey and colleagues, with an educational dacia from [employer]. Physical exam (Primary Care) Vital Signs: Last Vital Signs Pulse 94 09/07/24 10:54 BP 108/72 09/07/24 10:54 Pulse Ox 98 09/07/24 10:54 Oxygen Delivery Method Room Air 09/07/24 10:54 BMI result Body Mass Index 20.9 Tobacco/Smoking Status: Tobacco use Status Tobacco use date assessed 09/07/24 09/07/24 11:02 Patient Tobacco Use Status Current everyday Tobacco 09/07/24 11:02 Tobacco use type Cigarette 09/07/24 11:02 e-Cigarette/Vaping Use Never Used 09/07/24 11:02 PHQ-9: PHQ-9 Score PHQ-9: Total score 7 09/07/24 11:02 Depression Screening Interpretation: Positive Thrive Assessment: Date of Thrive Assessment Date Thrive assessed 09/07/24 09/07/24 11:02 Currently or been in a relationship where the following occur: I choose not to answer Const General: alert; No acute distress Eyes Conjunctivae: conjunctivae normal Resp Auscultation: clear to auscultation bilaterally Cardio Rate: regular rate Rhythm: regular rhythm GI Inspection: Yes normal to inspection Extrem General: Yes normal to inspection and No edema Coding Level of Care Code Est Pt Level 4 (06615) Complex EM visit Add On G2211 Diagnoses Tobacco abuse Z72.0 ETOH abuse F10.10 Gastroesophageal reflux disease without esophagitis K21.9 Esophagitis presence: without esophagitis Iron deficiency anemia, unspecified iron deficiency anemia type D50.9 Iron deficiency anemia type: unspecified iron deficiency Colon cancer screening Z12.11 Folic acid deficiency E53.8 Moderate episode of recurrent major depressive disorder F33.1 Active/Remission status: currently active Major depression episode severity: moderate Assessment & Plan Assessment & Plan (1) Tobacco abuse: Comment: decline lung cancer screening Code(s): Z72.0 - Tobacco use Category: Medical Plan: Patient is strongly advised to stop smoking! (2) ETOH abuse: Code(s): F10.10 - Alcohol abuse, uncomplicated Category: Social Hx Plan: Patient is strongly advised to abstain from alcohol! (3) GERD (gastroesophageal reflux disease): Code(s): K21.9 - Gastro-esophageal reflux disease without esophagitis Category: Medical Qualifiers: Esophagitis presence: without esophagitis Qualified Code(s): K21.9 - Gastro-esophageal reflux disease without esophagitis Plan: Avoid the foods that causes that usually spicy foods, tomato products, juices, coffee, soda and foods that your sensitive to. After eating do not lie down, allow 3-4 hours before in lie down. And keep the head of bed above 30 degrees to avoid the acid from going up. (4) Iron deficiency anemia: Code(s): D50.9 - Iron deficiency anemia, unspecified Category: Medical Qualifiers: Iron deficiency anemia type: unspecified iron deficiency Qualified Code(s): D50.9 - Iron deficiency anemia, unspecified Plan: Continue with monitoring anemia (5) Colon cancer screening: Code(s): Z12.11 - Encounter for screening for malignant neoplasm of colon Category: Medical Plan: Patient is reminded about colonoscopy (6) Folic acid deficiency: Code(s): E53.8 - Deficiency of other specified B group vitamins Category: Medical Plan: Folic acid prescription sent (7) Recurrent major depression: Comment: Dr. Jeter Psychiatry dr. Mert Soliz Code(s): F33.9 - Major depressive disorder, recurrent, unspecified Category: Medical Qualifiers: Active/Remission status: currently active Major depression episode severity: moderate Qualified Code(s): F33.1 - Major depressive disorder, recurrent, moderate Plan: Continue to follow-up with counseling and therapy Plan History of Present Illness The patient is a 54-year-old male presenting with a follow-up for chronic health conditions. He has been managing chronic Hepatitis C and alcohol use disorder, alongside other medical conditions such as GERD and depression. The patient reports that his anemia is stable, as recent laboratory tests have shown acceptable hemoglobin and hematocrit levels. His liver function continues to show Hepatitis C reactivity with low inflammation markers. Additionally, cholesterol levels remain within desired ranges for LDL and triglycerides. The laboratory evaluations also revealed a folic acid deficiency, which is undergoing therapeutic management. The thyroid and urinary assessments have been normal in previous evaluations. Health Maintenance - Advised regarding smoking cessation - Advised to abstain from alcohol use - Reminder for colonoscopy screening - Folic acid supplementation prescribed Social History - Tobacco use: actively engaged, advised to cease - Alcohol use: ongoing, advised to abstain - History of polysubstance use Review of Systems - Gastrointestinal: Reports GERD symptoms - Psychiatric: Reports history of depression - Hematologic: Reports stable anemia Physical Exam Results - Labs: Hemoglobin 12.3 g/dL, Hematocrit 36.1%, LDL Cholesterol 69 mg/dL, Triglycerides 112 mg/dL, Low folic acid - Tests and Diagnostics: Hepatitis C reactive, Normal electrolytes and renal function Plan Our plan for the patient's health conditions includes ongoing monitoring and management of Hepatitis C, with continued liver function assessments. Stable anemia will be managed with regular blood work appointments, and a folic acid prescription has been provided. The patient was counseled on the importance of stopping smoking and abstaining from alcohol to support both liver and mental health. GERD will be managed with lifestyle adaptations, and psychological support remains critical for depression management. The patient is encouraged to follow through with therapy sessions and agreed on regular reevaluation in three months to monitor progress and make necessary adjustments to his care plan. Patient was informed and verbally consented to the use of an ambient scribe for clinic note documentation during this visit. Discussion Notes I had an in-depth discussion with the patient regarding his ongoing management for chronic conditions. We discussed the importance of adherence to lifestyle modifications, including smoking cessation and alcohol abstinence, to improve his overall health outcomes. The patient consented to continue folic acid supplementation for his deficiency. We reviewed his lab results in detail to reinforce the stable management of his anemia and low inflammation regarding Hepatitis C. I re-emphasized the importance of therapy and counseling in managing his depression and history of polysubstance use. The next follow-up is scheduled for three months to further evaluate his progress. Patient Instructions - Continue taking prescribed folic acid - Stop smoking and seek support for cessation - Abstain from consuming alcohol - Follow GERD management strategies - Attend counseling and therapy sessions regularly - Schedule and attend colonoscopy screening - Return for follow-up in three months or sooner if symptoms worsen Orders: Referrals Orthopedics Referral M25.552 - Pain in left hip Medications: New celecoxib (Celebrex) 200 mg PO DAILY 30 caps 0RF M25.552 - Pain in left hip
[2024-09-07 10:54] VITALS: BP 108/72; PULSE 94; O2SAT 98; BMI 20.9
--- OUTSIDE RECORDS SUMMARY | 2024-09-07 11:23 | XMS_ITS | Clinical Summary ---
Author Organization [employer] Address [address] [facility] [address] [place] [address] Care Team Providers Care Straw Hat Brim Raiser Operator Name Role Phone Unavailable Primary Care Provider [...] patient's age to complete this topic Meningococcal B Vaccine Aged Out No l onger eligible based on patient's age to complete this topic Meningococcal Vaccine Aged Out No sarika more eligible based on patient's age to complete this topic RSV under 20 months Aged Out No longe r eligible based on patient's age to complete this topic Rotavirus Vaccines Aged Out No longer eligible based on patient's age to complete this topic Insurance [facility] [place] [id number]
--- OUTSIDE RECORDS SUMMARY | 2024-09-07 11:23 | XMS_ITS | Encounter Summary ---
Author Organization [employer] Address [address] [facility] [address] [place] [address] Care Team Providers Care Aerospace Engineer Officer Armament Name Role Phone Unavailable Primary Care Provider Unavailabl e Reason for Visit * Reason Onset Date Comments New Patient 01/16/2023 Encounter Details Date Type Department Care Team (Late st Contact Info) Description 01/16/2023 Telephone [facility] [address], [place] [phone] Saroj Charlton MD [address] [place], [place] [phone] New Patient Social History Tobacco Use Types [...]
== END 2024-09-07 11:35 | disposition home or self-care (01) ==
LOC: HO.HMCH 10:44
PROVIDERS: PCP Internal Medicine; Visit Provider Internal Medicine
DX: Z72.0 Tobacco use (principal); F10.10 Alcohol abuse, uncomplicated; K21.9 Gastro-esophageal reflux disease without esophagitis; F33.1 Major depressive disorder, recurrent, moderate; D50.9 Iron deficiency anemia, unspecified; Z12.11 Encounter for screening for malignant neoplasm of colon; E53.8 Deficiency of other specified B group vitamins

== ENCOUNTER → 2024-09-07 10:43 | Outpatient (BNVA) | payer OTHER, SELFPAY | PROVIDERS: PCP Internal Medicine; Visit Provider Internal Medicine | DX: F10.10 Alcohol abuse, uncomplicated (principal); K21.9 Gastro-esophageal reflux disease without esophagitis; D50.9 Iron deficiency anemia, unspecified; E53.8 Deficiency of other specified B group vitamins; F33.1 Major depressive disorder, recurrent, moderate; Z72.0 Tobacco use | CPT/HCPCS: 99212 ==

== ENCOUNTER 2024-10-28 12:42 | Outpatient (AMB) | payer OTHER, SELFPAY ==
--- NOTE | 2024-10-28 13:06 | A.OFFVIS_ITS ---
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 Patient was seen by his PCP and was referred to orthopedics, 04/29/24 X Ray's were done of the Hip/pelvis. Patient reports that since his hip surgery at [facility] 3 years ago, the pain has increased. Patient stated that no physical therapy or injections were offered. He states no numbness or tingling to report at this time, pain is radiating down to the knee. Patient states that he is using NSAIDs but no relief. Allergies amoxicillin (Augmentin) Allergy (Unknown, Verified 10/28/24 13:11) rash clavulanic acid (From Augmentin) Adverse Reaction (Severe, Verified 10/28/24 13:11) Itching Medication List - Last Reconciled 10/28/24 by Pedro Luis Murphy PA-C acetaminophen (Tylenol) 325 mg PO QID PRN alprazolam (Xanax) 0.5 mg PO DAILY PRN blood pressure monitor (Blood Pressure Kit) As directed buspirone 15 mg PO BID cane As directed celecoxib (Celebrex) 200 mg PO DAILY duloxetine (Cymbalta) 60 mg PO BID famotidine 20 mg PO BEDTIME folic acid 1 mg PO DAILY gabapentin 600 mg PO TID [ORTHOPEDIC SHOE LIFT SHOE As directed] risperidone 2 mg PO .QD zolpidem (Ambien) 10 mg PO BEDTIME HPI 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 The patient states approximately 3 years ago he had a fall which resulted in a left hip injury. He had surgery on the left hip but was not entirely sure to what extent. He complains of constant pain and feels like the left leg is ?. He does not admit to use of substance. States he has been incarcerated recently. [facility] Medical History (Updated 10/28/24 @ 13:40 by Pedro Luis Murphy PA-C) Substance abuse Depression Anxiety GERD (gastroesophageal reflux disease) Hidradenitis suppurativa ETOH abuse Hepatitis C Surgical History (Updated 10/28/24 @ 13:36 by Pedro Luis Murphy PA-C) History of hip surgery History of incision and drainage History of hernia repair Family History (Updated 09/07/24 @ 11:01 by Chani Cat CMA) Mother No problems noted. Father No problems noted. Brother No problems noted. Son No problems noted. Social History (Updated 02/07/24 @ 13:13 by Minda Segura MD) Housing: House Alcohol intake: former Comment: QUIT 1999 Patient Tobacco Use Status: Current everyday Tobacco user Tobacco use type: Cigarette Cigarette Packs Per Day: 1 Cigarettes Per Day: 15 Years Smoked: 3/4 pack a day since 16 years old decline referral to Lung cancer screening e-Cigarette/Vaping Use: Never Used Second Hand Smoke Exposure: Yes service: No Current occupational status: unemployed and disabled Current occupational exposures/hazards: No Cognitive needs: No Hearing needs: No Vision needs: No Review of Systems Const All systems reviewed & are unremarkable except as noted in HPI and below Physical Exam Vital Signs: BMI result Body Mass Index 20.9 Extrem Other: Left hip is shortened however patient does wear a shoe lift. He has discomfort with hip flexion. He walks with an antalgic gait. 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 I explained to the patient there are no surgical options for him given the contraction and leg length discrepancy. I did offer him physical therapy for gait training and strengthening exercises which she was adamant about declining. He was persistent about getting pain medication which I explained that is not something that we prescribe in our office. I did recommend an evaluation by pain management to see if there are other resources that would be of use to him. The patient was interested in this and I will put the referral in. He does not need further appointments in our office. Coding Level of Care Code New Pt Level 3 (96882) Complex EM visit Add On G2211 Diagnoses Leg length discrepancy M21.70 Chronic left hip pain M25.552; G89.29
[2024-10-28 13:07] VITALS: BMI 20.9
--- OUTSIDE RECORDS SUMMARY | 2024-10-28 13:35 | XMS_ITS | Patient Health Record ---
Author Organization [facility] Address [address] [place] [address] Care Team Providers Care Margin Analyst Name Role Phone Po Minda KHOURY Primary Care Provider Dorian Bryson [phone] Reason For Referral No Information Plan Of Treatment No Information Insurance Providers Payer Name Payer Address Payer Phone Subscriber Number Group Number Insured Name Patient Relationship to Insured Coverage Start Date Coverage End Date Medicare of [place] [employer] [address] [place] [phone] [id number] CARYN WALLACE Self - patient is the insured MEDICAID OF [facility] [address] [place] [phone] [id number] CARYN WALLACE Self - patient is the insured
--- OUTSIDE RECORDS SUMMARY | 2024-10-28 13:35 | XMS_ITS | Clinical Summary ---
Author Organization [employer] Address [address] [facility] [address] [place] [address] Care Team Providers Care Digital Strategist Senior Manager Name Role Phone Unavailable Primary Care Provider [...] Panel 1972 SDOH Screening 1972 Sigmoidoscopy 1972 Disability Screening 1972 Alcohol/Substance Use Screening 1984 Tobacco Screening 1984 Family Planning (PISQ) 02/23/1987 Hepatitis C Screening 02/23/1990 DTaP/Tdap/Td Vaccines (1 - Tdap) 02/23/1991 Hepatitis B Vaccines (1 of 3 - 19+ 3-dose series) 02/23/1991 Pneumococcal Vaccine: 50+ Ye ars (1 of 1 - PCV) 02/23/2022 Zoster Vaccines (1 of 2) 02/23/2022 COVID-19 Vaccine ( - 2023-2 5 season) 2023 Influenza Vaccine (#1) 2024 RSV Patients and Pa tients Aged 60 [...] patient's age to complete this topic Insurance [facility] DUAL COMPLETE
== END 2024-10-28 13:32 | disposition home or self-care (01) ==
LOC: HO.HOS 12:43
PROVIDERS: PCP Internal Medicine; Visit Provider Physician Assistant
DX: M21.752 Unequal limb length (acquired), left femur (principal); M25.552 Pain in left hip; G89.29 Other chronic pain
CPT/HCPCS: 99203; G2211

== ENCOUNTER → 2024-10-28 12:42 | Outpatient (BNVA) | payer OTHER, SELFPAY | PROVIDERS: PCP Internal Medicine; Visit Provider Physician Assistant | DX: M25.552 Pain in left hip (principal); G89.29 Other chronic pain; M21.70 Unequal limb length (acquired), unspecified site; Z98.890 Other specified postprocedural states | CPT/HCPCS: 99202 ==

== ENCOUNTER 2025-01-12 09:45 | Outpatient (AMB) | payer OTHER, SELFPAY ==
--- NOTE | 2025-01-12 10:11 | MHC.PC.OV ---
Vital Signs 01/12/25 10:13 Height 5 ft 10 in Weight 145 lb BMI 20.8 BP 114/62 Blood Pressure Location Lt brachial Position Sitting Pulse 92 Pulse Source Pulse Oximeter Pulse Oximetry (%) 96 Oxygen Delivery Method Room Air Intake Visit Reasons: Tobacco abuse Allergies amoxicillin (Augmentin) Allergy (Unknown, Verified 01/12/25 10:13) rash clavulanic acid (From Augmentin) Adverse Reaction (Severe, Verified 01/12/25 10:13) Itching Medication List - Last Reconciled 01/12/25 by Minda Segura MD acetaminophen (Tylenol) 325 mg PO QID PRN alprazolam (Xanax) 0.5 mg PO DAILY PRN blood pressure monitor (Blood Pressure Kit) As directed buspirone 15 mg PO BID cane As directed celecoxib (Celebrex) 200 mg PO DAILY cyanocobalamin (vitamin B-12) 1,000 mcg PO DAILY duloxetine (Cymbalta) 60 mg PO BID famotidine 20 mg PO BEDTIME folic acid 1 mg PO DAILY gabapentin 600 mg PO TID [ORTHOPEDIC SHOE LIFT SHOE As directed] risperidone 2 mg PO .QD zolpidem (Ambien) 10 mg PO BEDTIME Tobacco use date assessed: 01/12/25 Dental Screening Dental Screen Date: 09/07/24 [facility] Medical History (Updated 01/12/25 @ 10:48 by Minda Segura MD) Substance abuse Depression Anxiety GERD (gastroesophageal reflux disease) Hidradenitis suppurativa ETOH abuse Hepatitis C Surgical History (Updated 10/28/24 @ 13:36 by Pedro Luis Murphy PA-C) History of hip surgery History of incision and drainage History of hernia repair Family History (Updated 09/07/24 @ 11:01 by Chani Cat CMA) Mother No problems noted. Father No problems noted. Brother No problems noted. Son No problems noted. Social History (Updated 02/07/24 @ 13:13 by Minda Segura MD) Housing: House Alcohol intake: former Comment: QUIT 1999 Patient Tobacco Use Status: Current everyday Tobacco user Tobacco use type: Cigarette Cigarette Packs Per Day: 1 Cigarettes Per Day: 15 Years Smoked: 3/4 pack a day since 16 years old decline referral to Lung cancer screening e-Cigarette/Vaping Use: Never Used Second Hand Smoke Exposure: Yes service: No Current occupational status: unemployed and disabled Current occupational exposures/hazards: No Cognitive needs: No Hearing needs: No Vision needs: No Questionnaire PHQ-9 Over the last 2 weeks, how often have you been bothered by any of the following problems? 1. Little interest or pleasure in doing things: several days 2. Feeling down, depressed, or hopeless: several days 3. Trouble falling or staying asleep, or sleeping too much: several days 4. Feeling tired or having little energy: several days 5. Poor appetite or overeating: not at all 6. Feeling bad about yourself - or that you are a failure or have let yourself or your family down: several days 7. Trouble concentrating on things, such as reading the newspaper or watching television: several days 8. Moving or speaking so slowly that other people could have noticed. Or the opposite - being so fidgety or restless that you have been moving around a lot more than usual: several days 9. Thoughts that you would be better off or of hurting yourself in some way: not at all Total score: 7 Depression Screening Interpretation: Positive Depression Screening Done: Yes Source: Developed by Drs. Dorian Ortiz, Zoey Stephens, Shaji Yancey and colleagues, with an educational dacia from [employer]. Thrive Questionnaire Date Thrive assessed: 09/07/24 I am a: Patient What is your living situation today?: I have a steady place to live Within the past 12 months, did the food you bought not last and you didn't have the money to get more?: Sometimes True Within the past 12 months, did you worry whether your food would run out before you got money to buy more?: Sometimes True Do you have trouble paying for medicines?: No Do you have trouble getting transportation to medical appointments?: No Do you have trouble paying your heating and electricity bill?: No Do you have trouble taking care of your child, family member or friend?: No Do you have trouble with day-to-day activities such as bathing, preparing meals, shopping, managing finances, etc.?: No Are you currently unemployed and looking for a job?: Yes Are you interested in more education?: No Please select the resources that you would like help with: None Currently or been in a relationship where the following occur: I choose not to answer THRIVE Score: 2 AUDIT C Alcohol Use Questionnaire (AUDIT-C) 1. How often do you have a drink containing alcohol?: Never Total Score: 0 RUBEN-7 AMB Questionnaire RUBEN-7 Date RUBEN - 7 assessed: 09/07/24 Source: Developed by Drs. Dorian Ortiz, Zoey Stephens, Shaji Yancey and colleagues, with an educational dacia from [employer]. Physical exam (Primary Care) Vital Signs: Last Vital Signs Pulse 92 01/12/25 10:13 BP 114/62 01/12/25 10:13 Pulse Ox 96 01/12/25 10:13 Oxygen Delivery Method Room Air 01/12/25 10:13 BMI result Body Mass Index 20.8 Tobacco/Smoking Status: Tobacco use Status Tobacco use date assessed 01/12/25 01/12/25 10:24 Patient Tobacco Use Status Current everyday Tobacco 01/12/25 10:13 Tobacco use type Cigarette 01/12/25 10:13 e-Cigarette/Vaping Use Never Used 01/12/25 10:13 PHQ-9: PHQ-9 Score PHQ-9: Total score 7 01/12/25 10:42 Depression Screening Interpretation: Positive Thrive Assessment: Date of Thrive Assessment Date Thrive assessed 09/07/24 01/12/25 10:13 Currently or been in a relationship where the following occur: I choose not to answer Const General: alert; No acute distress Eyes Conjunctivae: conjunctivae normal Resp Auscultation: clear to auscultation bilaterally Cardio Rate: regular rate Rhythm: regular rhythm GI Inspection: Yes normal to inspection Extrem General: Yes normal to inspection and No edema Coding Level of Care Code Est Pt Level 4 (84753) Complex EM visit Add On G2211 Diagnoses ETOH abuse F10.10 Folic acid deficiency E53.8 Hepatitis C virus infection without hepatic coma, unspecified chronicity B19.20 Hepatic coma status: without hepatic coma Viral hepatitis chronicity: unspecified Gastroesophageal reflux disease without esophagitis K21.9 Esophagitis presence: without esophagitis Colon cancer screening Z12.11 Leg length discrepancy M21.70 Tobacco abuse Z72.0 Left hip pain M25.552 Irritable bowel syndrome K58.9 Assessment & Plan Assessment & Plan (1) ETOH abuse: Code(s): F10.10 - Alcohol abuse, uncomplicated Category: Social Hx Plan: Patient is strongly advised to abstain from alcohol (2) Folic acid deficiency: Code(s): E53.8 - Deficiency of other specified B group vitamins Category: Medical Plan: Prescription for folic acid sent (3) Hepatitis C: Code(s): B19.20 - Unspecified viral hepatitis C without hepatic coma Category: Medical Qualifiers: Hepatic coma status: without hepatic coma Viral hepatitis chronicity: unspecified Qualified Code(s): B19.20 - Unspecified viral hepatitis C without hepatic coma Plan: Patient has a schedule with Gastroenterology in January (4) GERD (gastroesophageal reflux disease): Code(s): K21.9 - Gastro-esophageal reflux disease without esophagitis Category: Medical Qualifiers: Esophagitis presence: without esophagitis Qualified Code(s): K21.9 - Gastro-esophageal reflux disease without esophagitis Plan: Avoid the foods that causes that usually spicy foods, tomato products, juices, coffee, soda and foods that your sensitive to. After eating do not lie down, allow 3-4 hours before in lie down. And keep the head of bed above 30 degrees to avoid the acid from going up. (5) Colon cancer screening: Code(s): Z12.11 - Encounter for screening for malignant neoplasm of colon Category: Medical Plan: Patient has a schedule with Gastroenterology in January (6) Leg length discrepancy: Comment: L side shorter Code(s): M21.70 - Unequal limb length (acquired), unspecified site Category: Medical Plan: Reviewed the notes from Orthopedics and has been recommended physical therapy. This is nonsurgical also pain management (7) Tobacco abuse: Comment: decline lung cancer screening Code(s): Z72.0 - Tobacco use Category: Medical Plan: Patient is strongly advised to stop smoking (8) Left hip pain: Code(s): M25.552 - Pain in left hip Category: Medical (9) Irritable bowel syndrome: Code(s): K58.9 - Irritable bowel syndrome, unspecified Category: Medical Plan History of Present Illness The patient is a 54-year-old male presenting for a follow-up visit. He has a history of hepatitis C and alcohol use disorder, which have been ongoing concerns. The patient also has a history of depression, which has been managed with medication. The patient reports chronic left hip pain, which was evaluated by orthopedics and diagnosed as a leg length discrepancy. No surgical options were available, and physical therapy was advised along with a referral to pain management. The patient has been anemic for a long time, but the condition is stable. Recent blood work showed stable renal function, normal liver function, and normal iron levels. However, vitamin B12 and folic acid levels were low, necessitating supplementation. The patient experiences symptoms of gastroesophageal reflux disease, for which famotidine was prescribed. He also reports gastrointestinal discomfort, including gas and occasional diarrhea, which may be related to dietary factors. Health Maintenance - Smoking cessation advice provided - Scheduled gastroenterology follow-up in January Social History - Substance use: History of alcohol use disorder and current smoker Review of Systems - Gastrointestinal: Reports gas and occasional diarrhea. Denies constipation. Physical Exam Results - Labs: Anemia stable, renal function stable (creatinine 1.01), normal liver function, low vitamin B12 (286), low folic acid, normal iron levels Plan Patient was informed and verbally consented to the use of an ambient scribe for clinic note documentation during this visit. 1. Hepatitis C The patient is advised to abstain from alcohol to prevent further liver damage and is scheduled for a follow-up with gastroenterology in January. 2. Alcohol Use Disorder The patient is strongly advised to stop alcohol consumption to improve overall health and prevent complications related to hepatitis C. 3. Depression The patient's depression is managed with medication, and no changes were discussed during this visit. 4. Leg Length Discrepancy The patient is referred to physical therapy and pain management for chronic left hip pain associated with leg length discrepancy. 5. Anemia The patient's anemia is stable, and no new interventions were discussed during this visit. 6. Low Vitamin B12 The patient is prescribed vitamin B12 supplementation to address the deficiency. 7. Low Folic Acid The patient is prescribed folic acid supplementation to address the deficiency. 8. Gastroesophageal Reflux Disease The patient is prescribed famotidine for management of gastroesophageal reflux disease symptoms. Discussion Notes During the visit, I discussed the importance of abstaining from alcohol to prevent further liver damage due to hepatitis C. The patient was advised to continue with prescribed medications for depression and to follow up with gastroenterology in January. I also emphasized the need for smoking cessation and provided a prescription for famotidine to manage gastroesophageal reflux disease symptoms. Patient Instructions - Stop smoking and alcohol consumption to improve health. - Take prescribed medications as directed, including vitamin B12 and folic acid supplements. - Follow up with gastroenterology in January for further evaluation. - Attend physical therapy and pain management appointments for hip pain. Orders: Referrals Pain Management Referral M25.552 - Pain in left hip Medications: New cyanocobalamin (vitamin B-12) 1,000 mcg PO DAILY 30 caps 3RF E53.8 - Deficiency of other specified B group vitamins cyclobenzaprine 10 mg PO BEDTIME PRN 30 tabs 1RF muscle spasm G89.29 - Other chronic pain, M25.552 - Pain in left hip dicyclomine 10 mg PO TID 20 caps 0RF K58.9 - Irritable bowel syndrome, unspecified Refilled famotidine 20 mg PO BEDTIME 30 tabs 2RF K21.9 - Gastro-esophageal reflux disease without esophagitis celecoxib (Celebrex) 200 mg PO DAILY 30 caps 0RF M25.552 - Pain in left hip
[2025-01-12 10:13] VITALS: BP 114/62; PULSE 92; O2SAT 96; BMI 20.8
--- OUTSIDE RECORDS SUMMARY | 2025-01-12 11:41 | XMS_ITS | Clinical Summary ---
Author Organization [employer] Address [address] [place] [address] Care Team Providers Care Pin Maker Name Role Phone Unavailable Primary Care Provider [...] Vaccines (1 of 2) 02/23/2022 COVID-19 Vaccine (1 - 2023-2 5 season) 2024 Influenza Vaccine (#1) 2024 RSV Patients and [...] patient's age to complete this topic Insurance [facility] DUAL COMPLETE
--- OUTSIDE RECORDS SUMMARY | 2025-01-12 11:41 | XMS_ITS | Patient Health Record ---
Author Organization [facility] Address [address] [place] [address] Care Team Providers Care Retail Zone Specialist Name Role Phone Po Minda KHOURY Primary Care Provider Dorian Bryson [phone] Reason For Referral No Information Plan Of Treatment No Information Insurance Providers Payer Name Payer Address Payer Phone Subscriber Number Group Number Insured Name Patient Relationship to Insured Coverage Start Date Coverage End Date Medicare [place] [employer] [address] [place] [phone] [id number] CARYN WALLACE Self - patient is the insured MEDICAID OF [facility] [address] [place] [phone] [id number] CARYN WALLACE Self - patient is the insured
--- OUTSIDE RECORDS SUMMARY | 2025-01-12 11:41 | XMS_ITS | Encounter Summary ---
Author Organization [employer] Address [address] [facility] [address] [place] [address] Care Team Providers Care Cable Way Operator Name Role Phone Unavailable Primary Care Provider Unavailabl e Reason for Visit * Reason Onset Date Comments New Patient 01/16/2023 Encounter Details Date Type Department Care Team (Late st Contact Info) Description 01/16/2023 Telephone [facility] [address] [place], [place] [phone] Saroj Charlton MD [address] [place], [place] [phone] New Patient Social History Tobacco Use Types [...]
== END 2025-01-12 10:52 | disposition home or self-care (01) ==
LOC: HO.HMCH 09:46
PROVIDERS: PCP Internal Medicine; Visit Provider Internal Medicine
DX: F10.10 Alcohol abuse, uncomplicated (principal); E53.8 Deficiency of other specified B group vitamins; B19.20 Unspecified viral hepatitis C without hepatic coma; K21.9 Gastro-esophageal reflux disease without esophagitis; Z12.11 Encounter for screening for malignant neoplasm of colon; M21.70 Unequal limb length (acquired), unspecified site; Z72.0 Tobacco use; M25.552 Pain in left hip; K58.9 Irritable bowel syndrome, unspecified

== ENCOUNTER → 2025-01-12 09:45 | Outpatient (BNVA) | payer OTHER, SELFPAY | PROVIDERS: PCP Internal Medicine; Visit Provider Internal Medicine | DX: K21.9 Gastro-esophageal reflux disease without esophagitis (principal); F10.10 Alcohol abuse, uncomplicated; E53.8 Deficiency of other specified B group vitamins; B19.20 Unspecified viral hepatitis C without hepatic coma; M21.70 Unequal limb length (acquired), unspecified site; M25.552 Pain in left hip; K58.9 Irritable bowel syndrome, unspecified; F32.A Depression, unspecified; R79.89 Other specified abnormal findings of blood chemistry; D64.9 Anemia, unspecified; Z72.0 Tobacco use | CPT/HCPCS: 96127; 99212 ==

== ENCOUNTER 2025-02-08 09:47 | Outpatient (AMB) | payer OTHER, SELFPAY ==
--- NOTE | 2025-02-08 09:51 | A.OFFVIS_ITS ---
Vital Signs 02/08/25 09:54 Height 5 ft 10 in Weight 146 lb 6 oz BMI 21.0 BP 132/82 Blood Pressure Location Rt brachial Position Sitting Pulse 101 H Pulse Source Pulse Oximeter Pulse Oximetry (%) 96 Oxygen Delivery Method Room Air Intake Visit Reasons: Left hip pain Intake Note: Pain today 10/29 Oven Operator Automatic Required: No Accompanied by: Self / Same As Patient Allergies amoxicillin (Augmentin) Allergy (Unknown, Verified 02/08/25 09:54) rash clavulanic acid (From Augmentin) Adverse Reaction (Severe, Verified 02/08/25 09:54) Itching HPI Comments Details: The patient is a 54-year-old male presenting with left hip and lower back pain. The hip pain began approximately five years ago following a fall in a courtroom, leading to a collapse and subsequent hip surgery at [facility]. Post- surgery, the patient has experienced difficulty walking, requiring the use of a walker initially and now a cane, along with a customized shoelift due to a significant leg length discrepancy. The patient reports constant pain described as pulsing, throbbing, pounding, aching, and dull, primarily affecting left hip and lower back. The pain is exacerbated by walking and is associated with numbness and a sensation of paralysis in the left leg, which has been present since the surgery. He was seen by our [facility] for left hip Girdlestone with no surgical treatment adviced and was referred to our office. Patient reports he was sent to our office for a stronger pain medication as current regime which includes Tylenol, NSAIDs, gabapentin, muscle relaxants are not alleviating his pain. The patient has not engaged in physical therapy due to fear of collapsing again and reports difficulty putting weight on the affected leg. He has not had a follow-up with the surgeon since the surgery, which occurred while he was in carcerated. The patient has a history of alcohol and polysubstance abuse, which has been in remission for the past five years. He also suffers from depression, insomnia and anxiety, for which he is under psychiatric care of Mert M[facility]quez at [facility]. Patient resides in house with 10 other renters and reports good social and community support. - Onset: Approximately five years ago following a fall in a courtroom, had surgery at [facility] ~ - Quality: Pulsing, throbbing, pounding, aching, dull - Location: Primarily in the left hip and lower back - Radiation: Associated numbness and paralysis sensation in the left leg, left hip radiates to groin and left anterolateral hip - Exacerbating factors: Walking, weight bearing, changing positions - Interference: Difficulty walking, requires cane and customized shoe lift - Affect: Depression, insomnia and anxiety related to chronic pain - Analgesia: Currently taking Celebrex, acetaminophen, gabapentin, duloxetine, and cyclobenzaprine; reports inadequate pain relief - Adverse Effects: None reported - Activities of Daily Living: Limited mobility, requires cane and customized shoe, difficulty with weight-bearing on left leg - Aberrant Drug Related Behaviors: None reported [facility] Medical History (Updated 02/08/25 @ 10:43 by LC Waite) Chronic low back pain Substance abuse Depression Anxiety GERD (gastroesophageal reflux disease) Hidradenitis suppurativa ETOH abuse Hepatitis C Surgical History S/P Girdlestone procedure History of hip surgery History of incision and drainage History of hernia repair Family History Mother No problems noted. Father No problems noted. Brother No problems noted. Son No problems noted. Social History Housing: House Alcohol intake: former Comment: QUIT 1999 Patient Tobacco Use Status: Current everyday Tobacco user Tobacco use type: Cigarette Cigarette Packs Per Day: 1 Cigarettes Per Day: 15 Years Smoked: 3/4 pack a day since 16 years old decline referral to Lung cancer screening e-Cigarette/Vaping Use: Never Used Second Hand Smoke Exposure: Yes service: No Current occupational status: unemployed and disabled Current occupational exposures/hazards: No Cognitive needs: No Hearing needs: No Vision needs: No Review of Systems Const Details: - Musculoskeletal: Reports constant, dull pain in hip and lower back; numbness and paralysis sensation in left leg, able to lift leg 10-15 degrees, assists his leg manually with lifting or raising - Neurological: Reports numbness and paralysis sensation in left leg - Psychiatric: Reports depression, insomnia and anxiety All systems reviewed & are unremarkable except as noted in HPI and below Physical Exam Vital Signs: Last Vital Signs Pulse 101 H 02/08/25 09:54 BP 132/82 02/08/25 09:54 Pulse Ox 96 02/08/25 09:54 Oxygen Delivery Method Room Air 02/08/25 09:54 BMI result Body Mass Index 21.0 General: Appears afebrile. Alert and oriented. Mood and affect appropriate. Follows and participates in conversation appropriately. Respiratory effort is unlabored. No cough. Able to transition from sit to stand with assistance with cane. Ambulates with slow, antalgic gait. Customized shoe lift present for shortned left hip. General: Yes no CVA tenderness Back/Spine/Pelvis Other: Limited lumbar ROM due to pain and shortned left hip. Lumbar extension and flexion reproduces mild to moderate pain. Demonstrates 5/5 right and 3.5/5 left strength of quadriceps bilaterally as well as flexion/dorsiflexion of bilateral feet against resistance. 2+ pedal pulses bilaterally. Facet loading test positive bilaterally. Moderate groin pain with I/E hip rotations and flexion reproduces left hip pain. Mild TTP to left GTB and SIJ on the left. Back: no CVA tenderness Cervical Spine: cervical ROM normal, loss of normal cervical lordosis and No Cervical spine tenderness Thoracic/Lumbar Spine: thoracic and lumbar spine normal to inspection, Lasegue's sign negative, straight leg raise negative bilaterally, pain with thoraco-lumbar ROM, thoraco-lumbar ROM limited, No thoracic spinal tenderness and No lumbar spinal tenderness Sacroiliac joints: on the right nontender and on the left tender to palpation Extrem General: Yes capillary refill normal, Yes no clubbing, cyanosis or edema and Yes calf tenderness (left) Results Reviewed Results Reviewed: XR HIP 1 VIEW LEFT WITH PELVIS 04/29/24 HISTORY: M25.552 - Pain in left hip COMPARISON: Correlation is made with a CT of the abdomen and pelvis dated 06/04/2018. FINDINGS: Two views of the left hip and a single AP view of the pelvis are submitted. Osseous mineralization is normal. The left femoral head is absent and there is superior migration of the remainder of the femur. This is possibly related to a femoral neck fracture with lysis of the femoral head. The soft tissues are unremarkable. IMPRESSION: Absence of the left femoral head with superior migration of the remainder of the femur. This may be related to a prior femoral neck fracture with lysis of the femoral head. Clinical correlation is recommended. Assessment & Plan Assessment & Plan (1) Leg length discrepancy: Comment: L side shorter Code(s): M21.70 - Unequal limb length (acquired), unspecified site Category: Medical (2) Chronic left hip pain: Code(s): M25.552 - Pain in left hip; G89.29 - Other chronic pain Category: Medical (3) S/P Girdlestone procedure: Code(s): Z98.890 - Other specified postprocedural states Category: Surgical (4) Chronic low back pain: Code(s): M54.50 - Low back pain, unspecified; G89.29 - Other chronic pain Category: Medical Plan The plan includes obtaining an MRI of the hip to further evaluate the underlying issues contributing to the patient's pain, previous hip procedure and leg length discrepancy. A secondary Orthopedic evaluation may be considered based on the MRI results to assess the need for further surgical intervention or alternative treatments. Physical therapy has been recommended to address the lower back and hip pain, although the patient has expressed a desire to wait before starting this intervention. The patient is advised to continue current medications, including Celebrex, acetaminophen, gabapentin, duloxetine, and cyclobenzaprine, as prescribed by his psychiatrist and primary care provider. I have informed patient that we do not offer opioid program. All questions and concerns have been answered and patient agreed with the treatment plan. Follow up for MRI results and sooner as needed. Patient was informed and verbally consented to the use of an ambient scribe for clinic note documentation during this visit. Orders: Orders MR hip LT wo con Today G89.29 - Other chronic pain, M21.70 - Unequal limb length (acquired), unspecified site, M25.552 - Pain in left hip, Z98.890 - Other specified postprocedural states Coding Level of Care Code New Pt Level 4 (35392) Diagnoses Leg length discrepancy M21.70 Chronic left hip pain M25.552; G89.29 S/P Girdlestone procedure Z98.890 Chronic low back pain M54.50; G89.29
[2025-02-08 09:54] VITALS: BP 132/82; PULSE 101; O2SAT 96; BMI 21.0
== END 2025-02-08 10:21 | disposition home or self-care (01) ==
PROVIDERS: PCP Internal Medicine; Visit Provider Nurse Practitioner Family
DX: M21.70 Unequal limb length (acquired), unspecified site (principal); M25.552 Pain in left hip; G89.29 Other chronic pain; Z98.890 Other specified postprocedural states; M54.50 Low back pain, unspecified
CPT/HCPCS: 99204

== ENCOUNTER → 2025-02-08 09:47 | Outpatient (BNVA) | payer OTHER, SELFPAY | PROVIDERS: PCP Internal Medicine; Visit Provider Nurse Practitioner Family | DX: M21.70 Unequal limb length (acquired), unspecified site (principal); M25.552 Pain in left hip; M54.50 Low back pain, unspecified; G89.29 Other chronic pain; Z98.890 Other specified postprocedural states | CPT/HCPCS: 99202 ==

== ENCOUNTER 2025-03-29 09:04 | Outpatient (AMB) | payer OTHER, SELFPAY ==
--- NOTE | 2025-03-29 09:21 | A.OFFVIS_ITS ---
Vital Signs 03/29/25 09:41 Height 5 ft 10 in Weight 146 lb BMI 20.9 BP 90/68 Blood Pressure Location Rt brachial Position Sitting Pulse 102 H Pulse Source Pulse Oximeter Pulse Oximetry (%) 98 Oxygen Delivery Method Room Air Intake Visit Reasons: gerd hep c colo screening Intake Note: New pt for initial eval of elevated labs, ? hep C. Initial colo consult. CC: C/O RUQ pain + Generalized abd cramping, confirmed hep c hx, diarrhea, nausea w/o vomiting, and GERD sx. Pt states his GERD is worse in the AM despite his medication. Pt only taking famotidine, no PPI. He is unsure of colo hx. He states he might have had one a while ago but he cannot remember. Auto Bumper Straightener Required: No Accompanied by: Self / Same As Patient Allergies amoxicillin (Augmentin) Allergy (Unknown, Verified 03/29/25 09:37) rash clavulanic acid (From Augmentin) Adverse Reaction (Severe, Verified 03/29/25 09: 37) Itching HPI HPI gerd hep c colo screening: Details: 55-year-old male with past medical history of chronic low back pain, IBS, RUQ, iron deficiency many me a, depression, history of polysubstance abuse, GERD, ETOH abuse, hepatitis C. Patient reports that he was treated over 20 years ago, however he believes that he was not able to finish the treatment as he got very sick from it. Patient reports that he stopped drinking alcohol about 5 years ago. Patient stopped IV drug use 15 years ago. Viral load not detected when checked in December. Patient reports severe abdominal cramping and dicyclomine is not helping. Patient also reports postprandial loose stools. Denies constipation. Patient denies dyspepsia, dysphagia or odynophagia. Patient denies melena, hematochezia, unintentional weight loss or ribbon like stools. The patient is taking famotidine as needed. Currently not on any PPI. Denies actual reflux. Reports epigastric pain and bloating postprandially [facility] Medical History (Updated 03/29/25 @ 15:19 by Corinna Mark [facility]) Hepatitis C Polysubstance abuse ETOH abuse Chronic low back pain Substance abuse Depression Anxiety GERD (gastroesophageal reflux disease) Hidradenitis suppurativa Surgical History S/P Girdlestone procedure History of hip surgery History of incision and drainage History of hernia repair Family History Mother No problems noted. Father No problems noted. Brother No problems noted. Son No problems noted. Social History Housing: House Alcohol intake: former Comment: QUIT 1999 Patient Tobacco Use Status: Current everyday Tobacco user Tobacco use type: Cigarette Cigarette Packs Per Day: 1 Cigarettes Per Day: 15 Years Smoked: 3/4 pack a day since 16 years old decline referral to Lung cancer screening e-Cigarette/Vaping Use: Never Used Second Hand Smoke Exposure: Yes service: No Current occupational status: unemployed and disabled Current occupational exposures/hazards: No Cognitive needs: No Hearing needs: No Vision needs: No Review of Systems Const Denies weight gain and Denies weight loss ENT Reports no additional complaints, Denies dysphagia and Denies odynophagia Card Reports no additional complaints Resp Reports no additional complaints GI Reports abdominal pain (Epigastric), Denies belching, Denies melena, Reports bloating, Denies change in bowel habits, Denies dysphagia, Denies excessive flatus, Denies dyspepsia, Denies heartburn, Denies diarrhea, Reports loose stools, Denies nausea, Denies odynophagia and Denies vomiting Reports no additional complaints Musc Reports no additional complaints Neuro Reports no additional complaints Psych Reports no additional complaints Endo Reports no additional complaints Physical Exam Vital Signs: Last Vital Signs Pulse 102 H 03/29/25 09:41 BP 90/68 03/29/25 09:41 Pulse Ox 98 03/29/25 09:41 Oxygen Delivery Method Room Air 03/29/25 09:41 BMI result Body Mass Index 20.9 Const General: healthy appearing, no acute distress and well developed Nutritional Appearance: well nourished Orientation/consciousness: patient oriented x3 Resp Effort & Inspection: normal respiratory effort, able to speak in complete sentences, no tracheal deviation and symmetric chest movement Auscultation: clear to auscultation bilaterally Cardio Rate: regular rate GI Inspection: Yes normal to inspection and No distended Palpation (GI): Soft to palpation, not firm, nontender and No hepatosplenomegaly present Auscultation: normal bowel sounds General: Yes no CVA tenderness Back/Spine/Pelvis Back: no CVA tenderness Skin General skin exam: elasticity normal, turgor normal and dry skin Neuro General: patient oriented x3 Psych Appearance: grossly normal Mental Status: mental status grossly normal Assessment & Plan Assessment & Plan (1) GERD (gastroesophageal reflux disease): Code(s): K21.9 - Gastro-esophageal reflux disease without esophagitis Category: Medical Qualifiers: Esophagitis presence: without esophagitis Qualified Code(s): K21.9 - Gastro-esophageal reflux disease without esophagitis (2) Irritable bowel syndrome: Code(s): K58.9 - Irritable bowel syndrome, unspecified Category: Medical Qualifiers: Irritable bowel syndrome type: with diarrhea Qualified Code(s): K58.0 - Irritable bowel syndrome with diarrhea (3) RUQ abdominal pain: Code(s): R10.11 - Right upper quadrant pain Category: Medical (4) History of hepatitis C: Code(s): Z86.19 - Personal history of other infectious and parasitic diseases Plan Patient reports dicyclomine is not him being with cramps. Patient can take hyoscyamine instead with each meal. Patient was also encouraged to take fiber daily to help him bulk stools. History of alcohol use and hep C. Will do liver panel and will send him for ultrasound with elastography. Will check lipase, thyroid study, vitamin-D, transglutaminase, vitamin B12 and folate. Discussed with patient low FODMAP diet. List of food recommended as well as list of food to avoid given to patient. Patient will return in 2 months to discuss going for colonoscopy and possible upper endoscopy. Patient is agreeable to current plan of care and verbalizes understanding of instructions. He was given the opportunity to ask questions and all questions answered. Thank you for allowing me to participate in his care Orders: Orders Lipase Today R10.9 - Unspecified abdominal pain Liver Panel Today R74.01 - Elevation of levels of liver transaminase levels TSH reflex Free T4 Today K59.00 - Constipation, unspecified Vitamin D 25-OH (D2 and D3) Today E55.9 - Vitamin D deficiency, unspecified Transglutaminase IgA Today R10.9 - Unspecified abdominal pain Vitamin B12 and Folate Today R19.7 - Diarrhea, unspecified US abdomen comp w elastography Today R79.89 - Other specified abnormal findings of blood chemistry Medications: New psyllium husk 1.04 grams (2 x 0.52 gram) PO DAILY 180 caps 4RF K59.00 - Constipation, unspecified hyoscyamine sulfate 0.125 mg PO BID-QID PRN 120 tabs 2RF dyspepsia R10.9 - Unspecified abdominal pain Discontinued dicyclomine Discontinued Reason: Doctor's Order 10 mg PO TID 20 caps 0RF K58.9 - Irritable bowel syndrome, unspecified Coding Level of Care Code New Pt Level 4 (06920) Diagnoses Gastroesophageal reflux disease without esophagitis K21.9 Esophagitis presence: without esophagitis Irritable bowel syndrome with diarrhea K58.0 Irritable bowel syndrome type: with diarrhea RUQ abdominal pain R10.11 History of hepatitis C Z86.19 Time Spent (min) 50 Comment 35 minutes and patient and additional 15 minutes spent reviewing her records
[2025-03-29 09:41] VITALS: BP 90/68; PULSE 102; O2SAT 98; BMI 20.9
== END 2025-03-29 10:58 | disposition home or self-care (01) ==
LOC: HO.HGI 09:05
PROVIDERS: PCP Internal Medicine; Visit Provider Nurse Practitioner Family
DX: K21.9 Gastro-esophageal reflux disease without esophagitis (principal); K58.0 Irritable bowel syndrome with diarrhea; R10.11 Right upper quadrant pain; Z86.19 Personal history of other infectious and parasitic diseases
CPT/HCPCS: 99204

== ENCOUNTER → 2025-03-29 09:04 | Outpatient (BNVA) | payer OTHER, SELFPAY | PROVIDERS: PCP Internal Medicine; Visit Provider Nurse Practitioner Family | DX: K21.9 Gastro-esophageal reflux disease without esophagitis (principal); K58.0 Irritable bowel syndrome with diarrhea; R10.11 Right upper quadrant pain; Z86.19 Personal history of other infectious and parasitic diseases | CPT/HCPCS: 99202 ==

== ENCOUNTER 2025-04-21 13:21 | Outpatient (AMB) | payer OTHER, SELFPAY ==
[2025-04-21 13:23] VITALS: BP 122/68; PULSE 112; O2SAT 98; BMI 21.5
--- NOTE | 2025-04-21 13:23 | A.OFFPC_ITS ---
Vital Signs 04/21/25 13:23 Height 5 ft 10 in Weight 150 lb BMI 21.5 BP 122/68 Blood Pressure Location Lt brachial Position Sitting Pulse 112 H Pulse Source Pulse Oximeter Pulse Oximetry (%) 98 Oxygen Delivery Method Room Air Intake Visit Reasons: 3 MONTH Allergies amoxicillin (Augmentin) Allergy (Unknown, Verified 04/21/25 13:23) rash clavulanic acid (From Augmentin) Adverse Reaction (Severe, Verified 04/21/25 13:23) Itching Medication List - Last Reconciled 04/21/25 by Minda Segura MD acetaminophen (Tylenol) 325 mg PO QID PRN alprazolam (Xanax) 0.5 mg PO DAILY PRN blood pressure monitor (Blood Pressure Kit) As directed buspirone 15 mg PO BID cane As directed cyanocobalamin (vitamin B-12) 1,000 mcg PO DAILY cyclobenzaprine 10 mg PO BEDTIME PRN duloxetine (Cymbalta) 60 mg PO BID famotidine 20 mg PO BEDTIME folic acid 1 mg PO DAILY gabapentin 600 mg PO TID hyoscyamine sulfate 0.125 mg PO BID-QID PRN [ORTHOPEDIC SHOE LIFT SHOE As directed] psyllium husk 1.04 grams (2 x 0.52 gram) PO DAILY risperidone 2 mg PO .QD zolpidem (Ambien) 10 mg PO BEDTIME Tobacco use date assessed: 01/12/25 Dental Screening Dental Screen Date: 09/07/24 HPI HPI Comments History of Present Illness Details History of Present Illness The patient is a 55-year-old male presenting for a follow-up visit for his chronic conditions, last seen in December 2024. He has a history of GERD, depression, and is a current smoker. Regarding his gastrointestinal issues, the patient followed up with a tape maker in March. He reports abdominal cramping and diarrhea, for which he was given dicyclomine, which has not been helpful. A colonoscopy and EGD are pending. The patient suffers from chronic low back pain and chronic left hip pain, for which he follows up with pain management. Pain management had recommended injections, but the patient reports he was never called for scheduling. He was previously advised to get an MRI of the hip. He takes celecoxib (Celebrex) once daily, which he states does not provide much relief and reports taking excessive amounts of jomt-[id number] pain medication. In his social history, the patient stopped drinking alcohol 5 years ago and stopped using intravenous drugs 15 years ago. His last blood work from August 2024 showed mild anemia, low folic acid, and low vitamin B12. His electrolytes, renal function (creatinine 1.01), liver function, and LDL cholesterol (69) were normal. These labs also showed he was positive for the Hepatitis C antibody. The patient reports seeing his psychiatrist and states that everything is going well in that regard. Health Maintenance - Patient is a current smoker and was ad vised to quit. - Patient declines vaccinations, includi ng the flu shot. - He was advised to eat healthy, stay ac tive, and maintain adequate fluid intake. - Gastroenterology follow-up is planned for a pending colonoscopy and EGD. - Lab work from August 2024 showed an LDL c holesterol of 69. Social History - Substance Use: The patient is a curren t smoker. - He reports having stopped drinking alc ohol 5 years ago and quit intravenous drug use 15 years ago. - Functional Status: The patient reports pain in his hip, knee, and ankle. - He has a leg length discrepancy that r equires an orthopedic shoe lift. - Psychosocial: The patient sees a psych iatrist for depression and reports that he is doing well. Results - Labs (August 2024): - Mild anemia noted. - Electrolytes were good. - Renal function was good with a creatin ine of 1.01. - Liver function was fine. - LDL cholesterol was 69. - Folic acid was low. - Vitamin B12 was low. - Hepatitis C antibody was positive. [facility] Medical History (Updated 03/29/25 @ 15:19 by Corinna Mark [facility]) Hepatitis C Polysubstance abuse ETOH abuse Chronic low back pain Substance abuse Depression Anxiety GERD (gastroesophageal reflux disease) Hidradenitis suppurativa Surgical History S/P Girdlestone procedure History of hip surgery History of incision and drainage History of hernia repair Family History Mother No problems noted. Father No problems noted. Brother No problems noted. Son No problems noted. Social History Housing: House Alcohol intake: former Comment: QUIT 1999 Patient Tobacco Use Status: Current everyday Tobacco user Tobacco use type: Cigarette Cigarette Packs Per Day: 1 Cigarettes Per Day: 15 Years Smoked: 3/4 pack a day since 16 years old decline referral to Lung cancer screening e-Cigarette/Vaping Use: Never Used Second Hand Smoke Exposure: Yes service: No Current occupational status: unemployed and disabled Current occupational exposures/hazards: No Cognitive needs: No Hearing needs: No Vision needs: No Questionnaire Thrive Questionnaire Date Thrive assessed: 09/07/24 I am a: Patient What is your living situation today?: I have a steady place to live Within the past 12 months, did the food you bought not last and you didn't have the money to get more?: Sometimes True Within the past 12 months, did you worry whether your food would run out before you got money to buy more?: Sometimes True Do you have trouble paying for medicines?: No Do you have trouble getting transportation to medical appointments?: No Do you have trouble paying your heating and electricity bill?: No Do you have trouble taking care of your child, family member or friend?: No Do you have trouble with day-to-day activities such as bathing, preparing meals, shopping, managing finances, etc.?: No Are you currently unemployed and looking for a job?: Yes Are you interested in more education?: No Currently or been in a relationship where the following occur: I choose not to answer THRIVE Score: 2 RUBEN-7 AMB Questionnaire RUBEN-7 Date RUBEN - 7 assessed: 09/07/24 Source: Developed by Drs. Dorian Ortiz, Zoey Stephens, Shaji Yancey and colleagues, with an educational dacia from [employer]. Review of Systems Narrative Review of Systems - Gastrointestinal: Reports abdominal cramping and diarrhea. - Musculoskeletal: Reports chronic pain in his left hip and low back, as well as pain in his knee and ankle. - Respiratory: Reports a cough. - Integumentary: Reports dry skin. - Genitourinary: Denies any problems with urination. - Constitutional: Describes his sleep as okay, getting a few hours per night. - Psychiatric: Reports doing well with his psychiatric care. Physical exam (Primary Care) Vital Signs: Last Vital Signs Pulse 112 H 12/31/25 13:23 BP 122/68 04/21/25 13:23 Pulse Ox 98 04/21/25 13:23 Oxygen Delivery Method Room Air 04/21/25 13:23 BMI result Body Mass Index 21.5 Tobacco/Smoking Status: Tobacco use Status Tobacco use date assessed 01/12/25 04/21/25 13:28 Patient Tobacco Use Status Current everyday Tobacco 04/21/25 13:28 Tobacco use type Cigarette 04/21/25 13:28 e-Cigarette/Vaping Use Never Used 04/21/25 13:28 Thrive Assessment: Date of Thrive Assessment Date Thrive assessed 09/07/24 04/21/25 13:28 Currently or been in a relationship where the following occur: I choose not to answer Narrative Physical Exam - Respiratory: Lungs are clear to auscultation posteriorly. Const General: alert; No acute distress Eyes Conjunctivae: conjunctivae normal Resp Auscultation: clear to auscultation bilaterally Cardio Rate: regular rate Rhythm: regular rhythm GI Inspection: Yes normal to inspection Extrem General: Yes normal to inspection and No edema Coding Level of Care Code Est Pt Level 4 (31381) Add On Problem Visit Only Diagnoses Folic acid deficiency E53.8 Gastroesophageal reflux disease without esophagitis K21.9 Esophagitis presence: without esophagitis Colon cancer screening Z12.11 Left hip pain M25.552 Tobacco abuse Z72.0 Assessment & Plan Assessment & Plan (1) Folic acid deficiency: Code(s): E53.8 - Deficiency of other specified B group vitamins Category: Medical Plan: Patient was advised to take folic acid once a day (2) GERD (gastroesophageal reflux disease): Code(s): K21.9 - Gastro-esophageal reflux disease without esophagitis Category: Medical Qualifiers: Esophagitis presence: without esophagitis Qualified Code(s): K21.9 - Gastro-esophageal reflux disease without esophagitis Plan: Avoid the foods that causes that usually spicy foods, tomato products, juices, coffee, soda and foods that your sensitive to. After eating do not lie down, allow 3-4 hours before in lie down. And keep the head of bed above 30 degrees to avoid the acid from going up. On famotidine (3) Colon cancer screening: Code(s): Z12.11 - Encounter for screening for malignant neoplasm of colon Category: Medical Plan: has met with Gastroenterology and will get this scheduled. Meanwhile checking on hepatitis-C (4) Left hip pain: Code(s): M25.552 - Pain in left hip Category: Medical Plan: Keep active eat healthy (5) Tobacco abuse: Comment: decline lung cancer screening Code(s): Z72.0 - Tobacco use Category: Medical Plan: advised to stop!! Plan Plan Patient was informed and verbally consented to the use of an ambient scribe for clinic note documentation during this visit. 1. Chronic Pain The patient's chronic low back and left hip pain is poorly managed with celecoxib, leading to excessive use of pkcg-xyw-wlsurqm pain medications. A prescription for cyclobenzaprine, a muscle relaxant, will be refilled, with counseling provided on its sedative effects. A topical pain gel will also be prescribed, and a new prescription for an orthopedic shoe lift for his leg length discrepancy will be provided. The patient is encouraged to follow up with pain management regarding previously recommended injections. 2. Abdominal Pain With Diarrhea The patient has ongoing abdominal cramping and diarrhea, with no relief from dicyclomine. Management is deferred to the tape maker, with whom the patient has a pending colonoscopy and EGD. He was advised to maintain hydration. 3. Anemia With Folate And B12 Deficiency Lab results from August 2024 indicated mild anemia with low folic acid and vitamin B12 levels. As the patient is out of his folic acid supplement, a refill has been sent to the pharmacy. Repeat fasting blood work will be ordered to recheck these levels. 4. Tobacco Use Disorder The patient is a current smoker and was advised to quit. 5. Hepatitis C Lab work from August 2024 was positive for the Hepatitis C antibody. The gastroenterology team is aware and will arrange for repeat testing and further management. 6. Xerosis Cutis For his complaint of dry skin, the patient was advised to use moisturizer lotion regularly, with CeraVe recommended as an option. Discussion Notes I reviewed the patient's recent follow-up with gastroenterology and we discussed that the dicyclomine is not helping his abdominal cramps. I explained that his GI specialist will manage this issue and is planning a colonoscopy, EGD, and fo llow-up on his positive Hepatitis C antibody. We reviewed his lab work from August showing low folic acid and vitamin B12, and I emphasized the need for repeat fasting labs and taking his supplements, for which I re-sent a refill. Regarding his chronic pain, I clarified that Celebrex offers mild relief and cautioned against taking too many eawe-jtm-uzcbgcv pain medications. I refilled his muscle relaxant, cyclobenzaprine, warning him that it can cause sleepiness, and also prescribed a topical pain gel. I provided a new prescription for his orthopedic shoe lift. I strongly advised him to stop smoking. The patient declined recommended vaccinations. We also discussed his dry skin, and I recommended using a quality moisturizer. I recommended a follow-up appointment in about five months, advising him to contact us sooner if any new problems arise. 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 - We have refilled your muscle relaxer (cyclobenzaprine). - Be aware that this medication can make you sleepy. - We have prescribed a pain gel for you to rub on your sore joints. - Please get your fasting blood work done. - Continue to follow up with your stomach specialist (tape maker) as they will schedule your procedures and manage your abdominal pain. - It is very important to stop smoking. - Use a good moisturizing lotion like CeraVe for your dry skin. - We have given you a prescription for your special shoes (orthopedic shoe lift). - Drink plenty of fluids to stay hydrated. - Schedule a follow-up appointment in about five months, but call sooner if you have any problems. Orders: Orders Vitamin B12 and Folate Today Z72.0 - Tobacco use Complete Blood Count Auto Diff Today Z72.0 - Tobacco use Comprehensive Met. Panel Today Z72.0 - Tobacco use Free T4 (Free Thyroxine) Today Z72.0 - Tobacco use Thyroid Stimulating Hormone Today Z72.0 - Tobacco use Lipid Panel Today E78.00 - Pure hypercholesterolemia, unspecified, Z72.0 - Tobacco use Prostate Specific Antigen Scr Today Z72.0 - Tobacco use Medications: New diclofenac sodium 1% (Voltaren Arthritis Pain) apply to single knee, ankle, foot; for foot includes sole/toes/top of foot 4 grams topical QID 100 grams 0RF G89.29 - Other chronic pain, M54.50 - Low back pain, unspecified Refilled cyclobenzaprine 10 mg PO BEDTIME PRN 30 tabs 1RF muscle spasm G89.29 - Other chronic pain, M25.552 - Pain in left hip folic acid 1 mg PO DAILY 30 tabs 3RF [ORTHOPEDIC SHOE LIFT SHOE] As directed 1 ea 0RF M21.70 - Unequal limb length (acquired), unspecified site
--- OUTSIDE RECORDS SUMMARY | 2025-04-21 14:47 | XMS_ITS | Clinical Summary ---
Author Organization [employer] Address [address] [place] [address] Care Team Providers Care Ship/Rec/Doc Control Name Role Phone Unavailable Primary Care Provider [...] Alcohol/Substance Use Screening 1984 Tobacco Screening 1984 Hepatitis C Screening 02/23/1990 DTaP/Tdap/Td Vaccines (1 - Tdap) 02/23/1991 Hepatitis B Vaccines (1 of 3 - 19+ 3-dose series) 02/23/1991 Pneumococcal Vaccine: 50+ Ye ars (1 of 1 - PCV) 02/23/2022 Zoster Vaccines (1 of 2) 02/23/2022 COVID-19 Vaccine (2024-2 6 season) 2024 Influenza Vaccine (#1) 2024 RSV [...] patient's age to complete this topic Insurance [facility] DUAL COMPLETE
--- OUTSIDE RECORDS SUMMARY | 2025-04-21 14:47 | XMS_ITS | Encounter Summary ---
Author Organization [employer] Address [address] [place] [address] Care Team Providers Care Director Of Preclinical Research Name Role Phone Unavailable Primary Care Provider Unavailabl e Reason for Visit * Reason Onset Date Comments New Patient 01/16/2023 Encounter Details Date Type Department Care Team (Late st Contact Info) Description 01/16/2023 Telephone [facility] [address], [place] [phone] Saroj Charlton MD [address], [place] [phone] New Patient Social History Tobacco Use Types [...]
--- OUTSIDE RECORDS SUMMARY | 2025-04-21 14:47 | XMS_ITS | Patient Health Record ---
Author Organization [facility] Address [address] [place] [address] Care Team Providers Care Custodial Manager Name Role Phone Po Minda KHOURY Primary Care Provider Dorian Bryson [phone] Reason For Referral No Information Plan Of Treatment No Information Insurance Providers Payer Name Payer Address Payer Phone Subscriber Number Group Number Insured Name Patient Relationship to Insured Coverage Start Date Coverage End Date Medicare of [place] [employer] [address] [place] [id number] CARYN WALLACE Self - patient is the insured MEDICAID OF [facility] [address] [place] [id number] CARYN WALLACE Self - patient is the insured
== END 2025-04-21 13:57 | disposition home or self-care (01) ==
LOC: HO.HMCH 13:22
PROVIDERS: PCP Internal Medicine; Visit Provider Internal Medicine
DX: E53.8 Deficiency of other specified B group vitamins (principal); K21.9 Gastro-esophageal reflux disease without esophagitis; Z12.11 Encounter for screening for malignant neoplasm of colon; M25.552 Pain in left hip; Z72.0 Tobacco use

== ENCOUNTER → 2025-04-21 13:21 | Outpatient (BNVA) | payer OTHER, SELFPAY | PROVIDERS: PCP Internal Medicine; Visit Provider Internal Medicine | DX: E53.8 Deficiency of other specified B group vitamins (principal); K21.9 Gastro-esophageal reflux disease without esophagitis; M25.552 Pain in left hip; F17.200 Nicotine dependence, unspecified, uncomplicated; Z71.6 Tobacco abuse counseling | CPT/HCPCS: 99212 ==